=== PATIENT | male | born 1955 | race American Indian/Alaskan Native ===

== ENCOUNTER 2023-12-10 10:26 | Emergency (ER) | payer OTHER, SELFPAY ==
[2023-12-10 10:40] VITALS: BP 140/81; PULSE 102; RESP 18; TEMP 36.8; O2SAT 96; BMI 20.6
--- NOTE | 2023-12-10 10:47 | ECG_ITS ---
Test Reason : L ARM PAIN Blood Pressure : / mmHG Vent. Rate : 102 BPM Atrial Rate : 102 BPM P-R Int : 124 ms QRS Dur : 072 ms QT Int : 312 ms P-R-T Axes : 086 -44 064 degrees QTc Int : 406 ms Sinus tachycardia Left axis deviation Junctional ST depression, probably normal Abnormal ECG No previous ECGs available Referred By: Generic ED Physician Electronically Signed By:AN REAVES
[2023-12-10 11:06] LABS: MANUAL DIFF FLAG NO
[2023-12-10 11:09] LABS: Basophils Percent Auto 0.3 % (0-2); Eosinophils Percent Auto 0.1 % (0-4); Hematocrit 45.6 % (42.0-52.0); Hemoglobin 15.6 g/dl (14.0-18.0); Imm Gran Abs Auto 0.05 X10*3/uL (0.00-0.03); Imm Gran Pct Auto 0.7 % (0.0-0.4); Lymphocytes Absolute Auto 1.7 X10*3/uL (1.2-4.9); Lymphocytes Percent Auto 25.4 % (20-40); Mean Corpuscular HGB Conc 34.2 g/dl (31.0-36.0); Mean Corpuscular Volume 90.7 fL (80.0-98.0); Mean Platelet Volume 8.8 fL (9.4-12.4); Monocytes Absolute Auto 0.9 X10*3/uL (0.1-1.2); Monocytes Percent Auto 12.4 % (2-11); Neutrophils Absolute Auto 4.2 x10*3/uL (2.0-8.3); Neutrophils Percent Auto 61.1 % (45-73); Platelet Count 343 X10*3/uL (160-400); Red Blood Count 5.03 X10*6/uL (4.60-5.80); Red Cell Distribution Width 12.1 % (11.0-16.0); White Blood Count 6.9 X10*3/uL (4.8-10.8)
[2023-12-10 11:23] LABS: Anion Gap 12 (12-20); Blood Urea Nitrogen 13 mg/dL (9-16); Calcium 9.9 mg/dL (8.4-10.2); Carbon Dioxide 29 mmol/L (22-29); Chloride 101 mmol/L (96-108); Creatinine Clr Calc Pharmacy 51.3; Estimated Glomerular Filt Rate > 60; Glucose Random 104 mg/dL (60-115); Potassium 4.5 mmol/L (3.3-5.1); Sodium 137 mmol/L (135-145)
[2023-12-10 11:32] LABS: Troponin-I High Sensitivity < 2.7 ng/L (<3.5-35.0)
[2023-12-10 12:47] LABS: Influenza A PCR POSITIVE (Negative); Influenza B PCR NEGATIVE (Negative); Resp Syncy Virus RNA Qual PCR NEGATIVE (Negative); SARS COV2 PCR INHOUSE NEGATIVE (Negative)
--- NOTE | 2023-12-10 13:47 | ED_ITS ---
HPI - Extremity Problem General Chief complaint: Extremity Injury, Upper Stated complaint: L arm pain no inj Time Seen by Provider: 12/10/23 13:48 Related Data Allergies Allergy/AdvReac Type Severity Reaction Status Date / Time No Known Allergies Allergy Verified 12/10/23 10:46 [facility] Social History Social History Advance Directives: No Advance Directives Information Provided: Yes Physical Exam 2 Vital Signs: Vital Signs: Last Vital Signs Temp 98.2 F 12/10/23 10:40 Pulse 102 H 12/10/23 10:40 Resp 18 12/10/23 10:40 BP 140/81 H 12/10/23 10:40 Pulse Ox 96 12/10/23 10:40 O2 Del Method Room Air 12/10/23 10:40 BMI result Body Mass Index 20.6 Medical Decision Making Lab Data 12/10/23 11:00 12/10/23 11:00 Labs: Lab Results 12/10/23 12/10/23 Range/Units 11:00 11:57 WBC 6.9 (4.8-10.8) X10*3/uL RBC 5.03 (4.60-5.80) X10*6/uL Hgb 15.6 (14.0-18.0) g/dl Hct 45.6 (42.0-52.0) % MCV 90.7 (80.0-98.0) fL MCH 31.0 (27.0-33.0) pg MCHC 34.2 (31.0-36.0) g/dl RDW 12.1 (11.0-16.0) % Plt Count 343 (160-400) X10*3/uL MPV 8.8 L (9.4-12.4) fL Immature Gran % (Auto) 0.7 H (0.0-0.4) % Neut % (Auto) 61.1 (45-73) % Lymph % (Auto) 25.4 (20-40) % Benzie % (Auto) 12.4 H (2-11) % Eos % (Auto) 0.1 (0-4) % Baso % (Auto) 0.3 (0-2) % Lymph # (Auto) 1.7 (1.2-4.9) X10*3/uL [place] # (Auto) 0.9 (0.1-1.2) X10*3/uL Eos # (Auto) 0.0 (0.0-0.4) X10*3/uL Baso # (Auto) 0.0 (0.0-0.2) X10*3/uL Abs Immat Gran (auto) 0.05 H (0.00-0.03) X10*3/uL Absolute Neuts (auto) 4.2 (2.0-8.3) x10*3/uL Absolute Nucleated RBC 0.000 (0.0-0.012) X10*3/uL Nucleated RBC % (auto) 0.0 (0.0-0.2) /100WBC Sodium 137 (135-145) mmol/L Potassium 4.5 (3.3-5.1) mmol/L Chloride 101 (96-108) mmol/L Carbon Dioxide 29 (22-29) mmol/L Anion Gap 12 (12-20) BUN 13 (9-16) mg/dL Creatinine 1.04 (0.5-1.4) mg/dL Estim Creat Clear Calc 51.3 Estimated GFR > 60 Random Glucose 104 (60-115) mg/dL Calcium 9.9 (8.4-10.2) mg/dL Troponin I High Sens < 2.7 (<3.5-35.0) ng/L Influenza Type A (PCR) TNP POSITIVE A Influenza Type B (PCR) TNP NEGATIVE RSV RNA Qual (PCR) TNP NEGATIVE SARS-CoV-2 RNA (RT-PCR) TNP NEGATIVE Discharge Plan Discharge Print Language: Djiboutian
== END 2023-12-10 13:50 | disposition left against medical advice (07) ==
PROVIDERS: Emergency Medicine; Physician Assistant; Emergency Provider Emergency Medicine
DX: M79.602 Pain in left arm (principal); Z11.52 Encounter for screening for COVID-19
CPT/HCPCS: 0241U; 80048; 84484; 85025; 93005; 99283

== ENCOUNTER → 2023-12-10 10:47 | Outpatient (BNV) | payer OTHER, SELFPAY | PROVIDERS: Emergency Provider Emergency Medicine; Visit Provider Internal Medicine | DX: R94.31 Abnormal electrocardiogram [ECG] [EKG] (principal) | CPT/HCPCS: 93010 ==

== ENCOUNTER 2024-08-17 05:11 | Emergency (ER) | payer OTHER, SELFPAY ==
[2024-08-17 05:17] VITALS: BP 140/80; PULSE 82; O2SAT 98
[2024-08-17 05:20] VITALS: BP 159/98; PULSE 75; RESP 16; TEMP 36.5; O2SAT 98; BMI 24.1
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
[2024-08-17 09:36] VITALS: BP 127/67; PULSE 84; RESP 13; TEMP 37; O2SAT 98
--- NOTE | 2024-08-17 09:40 | MHC.EDTECH ---
this pct took patients vitals , as i was asking him how he is feeling he stated that he is ready to be with god and he wants to so he can be at peace .He also stated he has no one here and only came from [place] to be with his mom before she , he states he does have one child that is in [place] but will rather not bother him and ask for help because he already accomplished raising him and does not want to interrupt his life .
[2024-08-17 10:16] LABS: COVID-19 Test Negative (Negative); IDNOW Serial# 58CA691E
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
[2024-08-17 12:19] VITALS: BP 145/77; PULSE 99; RESP 14; TEMP 36.6; O2SAT 98
[2024-08-17 15:17] VITALS: BP 166/78; PULSE 88; RESP 18; TEMP 36.9; O2SAT 97
[2024-08-17 16:32] LABS: MANUAL DIFF FLAG NO
[2024-08-17 16:33] LABS: Basophils Percent Auto 0.3 % (0-2); Eosinophils Percent Auto 0.3 % (0-4); Hematocrit 38.9 % (42.0-52.0); Hemoglobin 13.8 g/dl (14.0-18.0); Imm Gran Abs Auto 0.02 X10*3/uL (0.00-0.03); Imm Gran Pct Auto 0.3 % (0.0-0.4); Lymphocytes Absolute Auto 1.6 X10*3/uL (1.2-4.9); Lymphocytes Percent Auto 28.4 % (20-40); Mean Corpuscular HGB Conc 35.5 g/dl (31.0-36.0); Mean Corpuscular Hemoglobin 32.3 pg (27.0-33.0); Mean Corpuscular Volume 91.1 fL (80.0-98.0); Monocytes Absolute Auto 0.5 X10*3/uL (0.1-1.2); Monocytes Percent Auto 8.5 % (2-11); Neutrophils Absolute Auto 3.6 x10*3/uL (2.0-8.3); Neutrophils Percent Auto 62.2 % (45-73); Platelet Count 204 X10*3/uL (160-400); Red Blood Count 4.27 X10*6/uL (4.60-5.80); Red Cell Distribution Width 12.5 % (11.0-16.0); White Blood Count 5.8 X10*3/uL (4.8-10.8)
[2024-08-17 16:57] LABS: Albumin Level 4.2 g/dL (3.5-5.0); Anion Gap 14 (12-20); Aspartate Amino Transferase 66 U/L (5-37); Bilirubin Total 0.4 mg/dL (0.0-1.0); Blood Urea Nitrogen 20 mg/dL (9-16); Calcium 9.3 mg/dL (8.4-10.2); Carbon Dioxide 27 mmol/L (22-29); Chloride 103 mmol/L (96-108); Creatinine Clr Calc Pharmacy 54.7; Estimated Glomerular Filt Rate > 60; Ethanol < 10 mg/dL; Glucose Random 120 mg/dL (60-115); Magnesium 2.1 mg/dL (1.6-2.6); Potassium 4.6 mmol/L (3.3-5.1); Sodium 139 mmol/L (135-145); Total Protein 7.7 g/dL (6.5-8.0)
[2024-08-17 17:07] LABS: Amphetamine Screen Urine Not Detected (Not Detect); Barbiturates, Urine Not Detected (Not Detect); Benzodiazepines Screen Urine Not Detected (Not Detect); Buprenorphine Scr Not Detected (Not Detect); Cannabinoid Screen Urine POSITIVE (Not Detect); Cocaine Screen Urine POSITIVE (Not Detect); Fentanyl, urine Not Detected (Not Detect); Methadone Screen, Urine Not Detected (Not Detect); Opiate Screen Urine Not Detected (Not Detect); Oxycodone Screen Urine Not Detected (Not Detect); Phencyclidine Screen Urine Not Detected (Not Detect)
[2024-08-17 17:53] LABS: Alanine Aminotransferase 66 U/L (0-40); Alkaline Phosphatase 87 U/L (39-117)
[2024-08-17] MEDS: Melatonin 3 MG TABLET 6 MG PO (22:03)
[2024-08-18 07:33] VITALS: BP 172/93; PULSE 73; RESP 17; TEMP 36.7; O2SAT 98
--- NOTE | 2024-08-18 08:20 | MHC.EDTECH ---
pt ate 75% of his breakfast and 120cc of juice
[2024-08-18 11:46] VITALS: BP 168/88; PULSE 78; RESP 18; TEMP 36.8; O2SAT 98
--- NOTE | 2024-08-18 11:50 | MHC.CM.ED ---
Received notification from Maeve HARTMAN that patient is no longer interested in prison placement at SNF. Requesting to be d/c'd. Fartun SANCHEZ aware and d/c'd. Patient had transportation.
== END 2024-08-18 11:47 | disposition home or self-care (01) ==
PROVIDERS: Physician Assistant; Emergency Provider Emergency Medicine Emergency Medical Services
DX: F10.129 Alcohol abuse with intoxication, unspecified (principal); Y90.9 Presence of alcohol in blood, level not specified; Z59.00 Homelessness unspecified; Z51.81 Encounter for therapeutic drug level monitoring; Z79.899 Other long term (current) drug therapy; Z11.52 Encounter for screening for COVID-19
CPT/HCPCS: 36415; 80053; 80307; 83735; 85025; 87635; 99284; 99285

== ENCOUNTER → 2025-02-12 04:36 | Outpatient (BNV) | payer OTHER, SELFPAY | PROVIDERS: Emergency Provider Emergency Medicine; Visit Provider Radiology Diagnostic Radiology | DX: M54.2 Cervicalgia (principal); S09.90XA Unspecified injury of head, initial encounter; J32.0 Chronic maxillary sinusitis; W22.8XXA Striking against or struck by other objects, initial encounter | CPT/HCPCS: 70450; 70486; 72125 ==

== ENCOUNTER 2025-02-12 05:06 | Emergency (ER) | payer OTHER, SELFPAY ==
--- NOTE | ~2025-02-12 | CT_ITS ---
CLINICAL HISTORY: neck pain CT cervical spine without contrast Comparison: None provided Findings: Vertebral alignment is within normal limits. There is degenerative disc disease at the C4-5 through C6-7 levels associated with disc space narrowing and endplate productive changes. No acute fractures or dislocations. No acute findings on limited view of the intracranial contents. No cervical fluid collections or masses. A calcified granuloma seen at the right lung apex. IMPRESSION: No acute findings. This document has been electronically signed by: Yuri Love MD on 02/12/2025 07:21:38
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
[2025-02-12 05:09] VITALS: BP 113/66; BP 140/80; PULSE 105; PULSE 94; RESP 16; TEMP 36.3; O2SAT 94; O2SAT 95; BMI 22.4
[2025-02-12 05:23] VITALS: BP 113/66; PULSE 94; RESP 16; TEMP 36.3; O2SAT 94
--- NOTE | 2025-02-12 05:40 | PC.NURSE ---
pt self removed C collar, aware
[2025-02-12 06:24] VITALS: BP 117/65; PULSE 80; RESP 16; TEMP 36.6; O2SAT 96
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
[2025-02-12] MEDS: Acetaminophen 325 MG TABLET 975 MG PO (07:30)
[2025-02-12 07:37] VITALS: BP 134/84; PULSE 85; RESP 20; TEMP 36.9; O2SAT 96
[2025-02-12 07:41] VITALS: BP 134/84; PULSE 85; RESP 20; TEMP 36.9; O2SAT 96
== END 2025-02-12 07:59 | disposition home or self-care (01) ==
PROVIDERS: Emergency Provider Emergency Medicine
DX: S09.90XA Unspecified injury of head, initial encounter (principal); R51.9 Headache, unspecified; M54.2 Cervicalgia; X58.XXXA Exposure to other specified factors, initial encounter; Y00.XXXA Assault by blunt object, initial encounter; Y93.9 Activity, unspecified; Y92.9 Unspecified place or not applicable; Y99.8 Other external cause status
CPT/HCPCS: 70450; 70486; 72125; 99284

== ENCOUNTER 2025-06-17 21:00 | Inpatient (IN) | payer MEDICARE, SELFPAY ==
--- NOTE | ~2025-06-17 | XR_ITS ---
CLINICAL HISTORY: pain 2 views left humerus Comparison: None provided Findings: There is no fracture. Joint alignment of the left shoulder and elbow appear normal. No lytic or blastic lesion is seen. Impression: Unremarkable left humerus radiographs. This document has been electronically signed by: Nas Barillas MD on 06/18/2025 00:58:34
--- NOTE | 2025-06-17 21:24 | ECG_ITS ---
Test Reason : QTC CHECK Blood Pressure : */* mmHG Vent. Rate : 73 BPM Atrial Rate : 73 BPM P-R Int : 140 ms QRS Dur : 92 ms QT Int : 390 ms P-R-T Axes : 75 -40 38 degrees QTcB Int : 429 ms Normal sinus rhythm Left axis deviation Abnormal ECG When compared with ECG of 10-Dec-2023 10:50, No significant change was found Referred By: Generic ED Physician Electronically Signed By: MARISOL LOVE MD
[2025-06-17 21:48] VITALS: BP 126/90; BP 130/82; PULSE 64; PULSE 76; RESP 16; TEMP 36.6; O2SAT 98; BMI 21.9
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
[2025-06-17 22:19] VITALS: BP 126/90; PULSE 76; RESP 16; TEMP 36.6; O2SAT 97
[2025-06-17 22:31] LABS: MANUAL DIFF FLAG NO
[2025-06-17 22:32] LABS: Hematocrit 38.6 % (42.0-52.0); Hemoglobin 13.2 g/dl (14.0-18.0); Imm Gran Abs Auto 0.01 X10*3/uL (0.00-0.03); Imm Gran Pct Auto 0.2 % (0.0-0.4); Lymphocytes Absolute Auto 1.9 X10*3/uL (1.2-4.9); Mean Corpuscular HGB Conc 34.2 g/dl (31.0-36.0); Mean Corpuscular Hemoglobin 31.0 pg (27.0-33.0); Mean Corpuscular Volume 90.6 fL (80.0-98.0); NRBC Abs Auto 0.000 X10*3/uL (0.0-0.012); NRBC Pct Auto 0.0 /100WBC (0.0-0.2); Platelet Count 234 X10*3/uL (160-400); Red Blood Count 4.26 X10*6/uL (4.60-5.80); White Blood Count 4.9 X10*3/uL (4.8-10.8)
[2025-06-17 22:35] LABS: Appearance Urine Clear; Glucose Urine UA Negative (Negative); PH 5.5 (5.0-9.0); Specific Gravity - Urine <= 1.005 (1.005-1.025)
[2025-06-17 22:45] LABS: Anion Gap 14 (12-20); Blood Urea Nitrogen 21 mg/dL (9-16); Calcium 8.8 mg/dL (8.4-10.2); Carbon Dioxide 23 mmol/L (22-29); Chloride 107 mmol/L (96-108); Creatinine Clr Calc Pharmacy 54.7; Estimated Glomerular Filt Rate > 60; Potassium 4.1 mmol/L (3.3-5.1); Sodium 140 mmol/L (135-145)
[2025-06-17 22:46] LABS: Cannabinoid Screen Urine Not Detected (Not Detect)
[2025-06-17 22:52] LABS: Salicylate < 5.0 mg/dL (15-30)
--- NOTE | 2025-06-18 00:25 | PC.NURSE ---
pt cooperative, pt remains a 1:1
--- NOTE | 2025-06-18 00:57 | PC.NURSE ---
medicated per mar.
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
[2025-06-18 04:03] VITALS: BP 128/63; PULSE 90; RESP 18; TEMP 36.7; O2SAT 98
[2025-06-18 05:51] VITALS: RESP 18
--- NOTE | 2025-06-18 07:36 | PC.NURSE ---
Assumed care of patient at 0645, patient appears to be in no apparent distress this am, resting in bed, respirations even and unlabored. Continue plan of care for IPLOC
[2025-06-18 12:58] VITALS: BP 159/78; PULSE 83; RESP 16; TEMP 36.7; O2SAT 98
[2025-06-18 12:59] VITALS: BMI 21.3
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
[2025-06-18] MEDS: Flu Vacc TS2025-26(6mo up)/PF 0.5 ML SYRINGE IM (18:05)
[2025-06-18 20:00] VITALS: BP 172/80; PULSE 75; RESP 16; TEMP 36.7; O2SAT 99
[2025-06-19 07:39] VITALS: BP 141/64; PULSE 70; RESP 16; TEMP 36.8; O2SAT 98
[2025-06-19 07:48] LABS: Total Hemoglobin (HGBA1C) 3770.9232 umol/L
[2025-06-19 08:02] LABS: Alanine Aminotransferase 129 U/L (0-40); Albumin Level 4.3 g/dL (3.5-5.0); Alkaline Phosphatase 84 U/L (39-117); Aspartate Amino Transferase 92 U/L (5-37); Blood Urea Nitrogen 20 mg/dL (9-16); Calcium 9.0 mg/dL (8.4-10.2); Cholesterol 248 mg/dL (<200); Creatinine Clr Calc Pharmacy 50.6; Estimated Glomerular Filt Rate > 60; HDL Cholesterol 79 mg/dL (>40); Magnesium 2.1 mg/dL (1.6-2.6); Total Protein 7.6 g/dL (6.5-8.0); Triglycerides 124 mg/dL (<150)
[2025-06-19 08:10] LABS: Anion Gap 12 (12-20); Carbon Dioxide 27 mmol/L (22-29); Chloride 105 mmol/L (96-108); Potassium 4.1 mmol/L (3.3-5.1); Sodium 140 mmol/L (135-145)
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
[2025-06-19 08:24] LABS: Folate 9.2 ng/mL (> or = 4.0); Vitamin B12 382 pg/mL (200-900)
[2025-06-19 10:21] VITALS: BP 147/86; PULSE 85; O2SAT 100
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
[2025-06-19] MEDS: Magnesium Hydrox/Alum Hydrox 30 ML ORAL.SUSP PO (19:07)
[2025-06-19 23:25] VITALS: BP 127/85; PULSE 97; RESP 16; TEMP 36.4; O2SAT 97
[2025-06-20 00:31] VITALS: PULSE 92; RESP 16; O2SAT 99
[2025-06-20] MEDS: Albuterol Sulfate (0.083%) 2.5 MG/3 ML VIAL.NEB INHALE (00:31)
[2025-06-20 08:00] VITALS: BP 150/86; PULSE 75; RESP 16; TEMP 36.4; O2SAT 98
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
[2025-06-20 19:30] VITALS: BP 140/72; PULSE 82; RESP 16; TEMP 36.6; O2SAT 99
[2025-06-20] MEDS: Magnesium Hydrox/Alum Hydrox 30 ML ORAL.SUSP PO (20:05)
[2025-06-21 08:00] VITALS: BP 153/73; PULSE 83; RESP 18; TEMP 36.2; O2SAT 100
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
[2025-06-21 19:57] VITALS: BP 148/74; PULSE 89; RESP 18; TEMP 36.6; O2SAT 98
[2025-06-22 08:00] VITALS: BP 125/75; PULSE 77; RESP 18; TEMP 36.8; O2SAT 99
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
[2025-06-22 20:00] VITALS: BP 126/71; PULSE 78; RESP 16; TEMP 36.6; O2SAT 100
[2025-06-23 07:15] VITALS: BP 134/79; PULSE 85; RESP 16; TEMP 36.3; O2SAT 98
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
[2025-06-23 20:03] VITALS: BP 142/73; PULSE 82; RESP 16; TEMP 36.9; O2SAT 99
[2025-06-24 08:00] VITALS: BP 149/81; PULSE 74; RESP 20; TEMP 36.6; O2SAT 100
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
[2025-06-24] MEDS: Nicotine 14 MG PATCH.TD24 TRANSDERMA (12:30)
[2025-06-24 20:00] VITALS: BP 169/76; PULSE 99; RESP 16; TEMP 36.9; O2SAT 98
[2025-06-25 07:00] VITALS: BMI 22.6
[2025-06-25 08:00] VITALS: BP 118/89; PULSE 84; RESP 18; TEMP 36.4; O2SAT 98
[2025-06-25] MEDS: Nicotine 14 MG PATCH.TD24 TRANSDERMA (09:07)
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
[2025-06-25 19:04] VITALS: BMI 22.6
[2025-06-25 20:50] VITALS: BP 169/83; PULSE 90; RESP 18; TEMP 37.3; O2SAT 97
[2025-06-26 07:51] VITALS: BP 144/70; PULSE 83; RESP 14; TEMP 36.7; O2SAT 98
[2025-06-26] MEDS: Nicotine 14 MG PATCH.TD24 TRANSDERMA (08:02)
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
[2025-06-26 20:00] VITALS: BP 185/87; PULSE 89; RESP 20; TEMP 37; O2SAT 94
[2025-06-26 21:45] VITALS: BP 155/86; PULSE 62; O2SAT 95
[2025-06-26 22:19] VITALS: PULSE 100; RESP 18; O2SAT 98
[2025-06-26] MEDS: Albuterol Sulfate (0.083%) 2.5 MG/3 ML VIAL.NEB INHALE (22:19)
[2025-06-27 07:20] VITALS: BP 140/91; PULSE 91; RESP 16; TEMP 36.7; O2SAT 99
[2025-06-27] MEDS: Nicotine 14 MG PATCH.TD24 TRANSDERMA (08:42)
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
[2025-06-27 20:00] VITALS: BP 151/77; PULSE 83; RESP 17; TEMP 36.7; O2SAT 99
[2025-06-28 08:13] VITALS: BP 120/62; PULSE 90; RESP 18; TEMP 37.1; O2SAT 98
[2025-06-28] MEDS: Nicotine 14 MG PATCH.TD24 TRANSDERMA (08:48)
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
[2025-06-29 07:57] VITALS: BP 134/85; PULSE 84; RESP 18; TEMP 36.5; O2SAT 99
[2025-06-29] MEDS: Nicotine 14 MG PATCH.TD24 TRANSDERMA (08:21)
[2025-06-29] MEDS: Lidocaine 4 % Patch ADH..PATCH 1 PATCH TRANSDERMA (11:06)
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
[2025-06-29 20:00] VITALS: BP 165/95; PULSE 77; RESP 16; TEMP 36.8; O2SAT 100
[2025-06-30 08:00] VITALS: BP 157/83; PULSE 95; RESP 16; TEMP 36.8; O2SAT 98
[2025-06-30] MEDS: Nicotine 14 MG PATCH.TD24 TRANSDERMA (08:53)
[2025-06-30] MEDS: Lidocaine 4 % Patch ADH..PATCH 1 PATCH TRANSDERMA (08:56)
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
== END 2025-06-30 11:15 | disposition home or self-care (01) | DRG 885 ==
LOC: HO.ED 06-18 02:34 → HO.PADLT16 06-18 11:16
PROVIDERS: Student in an Organized Health Care Education/Training Program; Admitting Provider Psychiatry & Neurology Psychiatry; Emergency Provider Emergency Medicine; Visit Provider Psychiatry & Neurology Psychiatry
DX: F33.2 Major depressive disorder, recurrent severe without psychotic features (principal); R45.851 Suicidal ideations; Z59.02 Unsheltered homelessness; Z23 Encounter for immunization; Y90.7 Blood alcohol level of 200-239 mg/100 ml; F19.10 Other psychoactive substance abuse, uncomplicated; F17.210 Nicotine dependence, cigarettes, uncomplicated; Z71.6 Tobacco abuse counseling; F14.10 Cocaine abuse, uncomplicated; F10.90 Alcohol use, unspecified, uncomplicated; Z79.899 Other long term (current) drug therapy
CPT/HCPCS: 36415; 73060; 80048; 80053; 80061; 80179; 80307; 81003; 82248; 82607; 82746; 83036; 83735; 85025; 90656; 93005; 94640; 99285; S9485

== ENCOUNTER → 2025-06-17 21:24 | Outpatient (BNV) | payer OTHER, SELFPAY | PROVIDERS: Admitting Provider Psychiatry & Neurology Psychiatry; Emergency Provider Emergency Medicine; Visit Provider Internal Medicine Cardiovascular Disease | DX: R94.31 Abnormal electrocardiogram [ECG] [EKG] (principal); Z13.6 Encounter for screening for cardiovascular disorders | CPT/HCPCS: 93010 ==

== ENCOUNTER → 2025-06-18 00:34 | Outpatient (BNV) | payer OTHER, SELFPAY | PROVIDERS: Emergency Provider Student in an Organized Health Care Education/Training Program; Visit Provider Radiology Diagnostic Radiology | DX: M79.622 Pain in left upper arm (principal) | CPT/HCPCS: 73060 ==

== ENCOUNTER → 2025-06-18 11:11 | Outpatient (BNV) | payer MEDICARE, SELFPAY | PROVIDERS: Admitting Provider Psychiatry & Neurology Psychiatry; Emergency Provider Emergency Medicine; Visit Provider Nurse Practitioner Family | DX: F43.9 Reaction to severe stress, unspecified (principal) | CPT/HCPCS: 99221 ==

== ENCOUNTER → 2025-06-18 11:11 | Outpatient (BNV) | payer MEDICARE, SELFPAY | PROVIDERS: Admitting Provider Psychiatry & Neurology Psychiatry; Emergency Provider Emergency Medicine; Visit Provider Psychiatry & Neurology Psychiatry | DX: F33.2 Major depressive disorder, recurrent severe without psychotic features (principal); F14.10 Cocaine abuse, uncomplicated; F10.90 Alcohol use, unspecified, uncomplicated; F43.11 Post-traumatic stress disorder, acute | CPT/HCPCS: 90792; 99232 ==

== ENCOUNTER 2025-07-16 23:19 | Emergency (ER) | payer MEDICARE, SELFPAY ==
[2025-07-16 23:27] VITALS: BP 157/81; PULSE 103; RESP 20; TEMP 36.3; O2SAT 95; BMI 22.5
[2025-07-17 00:08] LABS: Baso%MD 0.2 %; Eos%MD 0.2 %; Hematocrit 42.2 % (42.0-52.0); Hemoglobin 14.2 g/dl (14.0-18.0); IG%MD 0.3 %; Lymph%MD 22.1 %; Mean Corpuscular HGB Conc 33.6 g/dl (31.0-36.0); Mean Corpuscular Hemoglobin 30.2 pg (27.0-33.0); Mean Corpuscular Volume 89.8 fL (80.0-98.0); Mono%MD 7.7 %; NRBC Abs Auto 0.000 X10*3/uL (0.0-0.012); NRBC Pct Auto 0.0 /100WBC (0.0-0.2); Neut%MD 69.5 %; Platelet Count 313 X10*3/uL (160-400); Red Blood Count 4.70 X10*6/uL (4.60-5.80); White Blood Count 8.6 X10*3/uL (4.8-10.8)
[2025-07-17 00:09] LABS: Appearance Urine Clear; Glucose Urine UA Negative (Negative); PH 5.0 (5.0-9.0); Specific Gravity - Urine 1.010 (1.005-1.025)
[2025-07-17 00:19] LABS: Cannabinoid Screen Urine Not Detected (Not Detect)
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
[2025-07-17 00:29] LABS: Alanine Aminotransferase 33 U/L (0-40); Albumin Level 4.9 g/dL (3.5-5.0); Alkaline Phosphatase 86 U/L (39-117); Anion Gap 14 (12-20); Aspartate Amino Transferase 31 U/L (5-37); Blood Urea Nitrogen 24 mg/dL (9-16); Calcium 9.4 mg/dL (8.4-10.2); Carbon Dioxide 26 mmol/L (22-29); Chloride 104 mmol/L (96-108); Creatinine Clr Calc Pharmacy 51.7; Estimated Glomerular Filt Rate > 60; Potassium 3.8 mmol/L (3.3-5.1); Sodium 140 mmol/L (135-145); Total Protein 8.5 g/dL (6.5-8.0)
[2025-07-17 00:34] LABS: Salicylate < 5.0 mg/dL (15-30)
[2025-07-17 00:37] LABS: Band Neutrophils Percent 3 % (3-5); Lymphocytes Absolute Manual 2.6 X10*3/uL (1.2-4.9); Lymphocytes Percent Manual 30 % (20-40); Monocytes Absolute Manual 1.1 X10*3/uL (0.1-1.2); Monocytes Percent Manual 13 % (2-11); Neutrophils Absolute Manual 4.9 X10*3/uL (2.0-8.3); Neutrophils Percent Manual 54 % (45-73)
[2025-07-17 00:38] LABS: RBC Morphology NORMAL
[2025-07-17 06:59] VITALS: BP 152/72; PULSE 83; RESP 12; TEMP 36.6; O2SAT 98
--- NOTE | 2025-07-17 06:59 | PC.NURSE ---
Assumed care of patient at 0645, patient appears to be in no apparent distress this am, calm and cooperative, offering no complaints to this RN. Continue plan of care for CARE team eval
[2025-07-17 10:05] VITALS: BP 152/72; PULSE 83; RESP 12; TEMP 36.6
--- NOTE | 2025-07-17 14:19 | MHC.CARE ---
Pt has been [facility] to [facility] for veterans services specialist, 3 day follow up, 7 day alert, housing referrals, and Recovery coaching/peer support.
== END 2025-07-17 10:37 | disposition home or self-care (01) ==
PROVIDERS: Emergency Provider Emergency Medicine
DX: F14.10 Cocaine abuse, uncomplicated (principal); F10.129 Alcohol abuse with intoxication, unspecified; R45.851 Suicidal ideations; Y90.6 Blood alcohol level of 120-199 mg/100 ml
CPT/HCPCS: 36415; 80053; 80179; 80307; 81001; 85007; 85027; 99285; S9485

== ENCOUNTER 2025-07-18 04:16 | Inpatient (IN) | payer MEDICARE, SELFPAY ==
[2025-07-18 04:23] VITALS: BP 104/58; BP 120/70; PULSE 81; PULSE 90; RESP 18; TEMP 36.4; O2SAT 93; O2SAT 94; BMI 24.3
--- NOTE | 2025-07-18 04:26 | ED_ITS ---
HPI - General Adult General Stated complaint: ETOH and cocaine says they need panic attack meds Time Seen by Provider: 07/18/25 04:20 Source: patient and EMS Mode of arrival: EMS Limitations: no limitations History of Present Illness ED Provider: Dr. Clari Tomlin HPI narrative: Patient comes to the emergency room via ambulance. Patient reporting alcohol intoxication and stating that he wants to . Of note, patient came to the hospital yesterday for the same reason, was seen by the care team, discharged, referred to the [facility] for older adult social work specialist with a 3 day follow-up. Patient d enies any new issues. Patient states that he was not able to turkey picker his medications today either. Related Data Previous Rx's ?Medication ?Instructions ?Recorded acetaminophen 325 mg tablet 650 mg (2 x 325 mg) PO Q6H PRN 06/30/25 Headache/Pain, Scale 1-10 #0 tabs aluminum-magnesium hydroxide 200 30 ml PO Q6H PRN Hear tburn/Nausea 06/30/25 mg-200 mg/5 mL oral suspension #0 mL (MAG-AL) buspirone 5 mg tablet 5 mg PO TID 30 days #90 tabs 06/30/25 gabapentin 100 mg capsule 100 mg PO TID 30 days #90 ca ps 06/30/25 hydroxyzine HCl 25 mg tablet 25 mg PO TID PRN mild anx iety 30 06/30/25 days #90 tabs lidocaine 4 % topical patch 1 patch transdermal DAILY 30 days 06/30/25 (Lidocaine Pain Relief) #30 ea naltrexone 50 mg tablet 25 mg (1/2 x 50 mg) PO BEDTI ME 30 06/30/25 days #15 tabs nicotine 14 mg/24 hr daily 14 mg transdermal DAILY 28 days 06/30/25 transdermal patch #28 ea omeprazole 20 mg capsule,delayed 20 mg PO DAILY@0630 3 0 days #30 06/30/25 release caps quetiapine 100 mg tablet See Rx Instructions .Route 1 08/30/24 .COMPLEX 30 days #60 tabs trazodone 50 mg tablet See Rx Instructions .Route 1 08/30/24 .COMPLEX PRN Insomnia 30 days #60 tabs Allergies Allergy/AdvReac Type Severity Reaction Status Date / Time No Known Allergies Allergy Verified 07/18/25 04:28 Review of Systems Review of Systems: Constitutional : No Weight loss, No Fever, No Chills, No Night Sweats, No Fatigue, No Malaise ENT/Mouth : No Hearing loss, No Ear Pain, No Nasal Congestion, No Sinus Pain, No Hoarseness, No sore throat, No Rhinorrhea, No Swallowing Difficulty Eyes: No Eye Pain, No Swelling, No Redness, No Foreign Body, No Discharge, No Vision Changes Cardiovascular : No Chest Pain, No SOB, No Dyspnea on Exertion, No Orthopnea, No Edema, No Palpitations Respiratory : No Cough, No Sputum, No Wheezing, No Smoke Exposure, No Dyspnea Gastrointestinal : No Nausea, No Vomiting, No Diarrhea, No Constipation, No abdominal Pain, No Hematochezia, No Melena Genitourinary : no irregular bleeding, No Dysuria, No Urinary Frequency, No Hematuria, No Urinary Incontinence, No Urgency, No Flank Pain, No Urinary Flow Changes, No Hesitancy Musculoskeletal : No joint pain, No Myalgias, No Joint Swelling Skin : No Skin Lesions, No rash Neuro : No Weakness, No Numbness, No Paresthesias, No Loss of Consciousness, No Dizziness, No Headache Psych : Complaining of anxiety, depression, SI saying that he wants to jump in front of a car, same as yesterday. Admits to alcohol abuse Heme/Lymph: No Bruising, No Bleeding,No Lymphadenopathy Endocrine : No Polyuria, No Polydipsia, No Temperature Intolerance PMFSH Past Medical History Medical History Major depressive disorder, recurrent, severe 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 Social History Social History Household Members: None Housing: Homeless Housing Other:: street since January Do you presently have visiting nurse or other home services: No Alcohol intake: current Alcohol intake frequency: 3 or more drinks per day Alcohol type: beer Patient Tobacco Use Status: Current everyday Tobacco user Tobacco use type: Cigarette Cigarettes Per Day: 6 Years Smoked: 60 e-Cigarette/Vaping Use: Never Used Second Hand Smoke Exposure: No Substance Use Type: Crack/Cocaine service: No Sexual orientation: Straight/Heterosexual Physical Exam ED Exam Exam: Appearance: Alert. Oriented X3. No acute distress. Patient's seems to be a bit intoxicated but still able to speak coherently Eyes: Pupils equal, round and reactive to light. ENT: Pharynx normal. Neck: Normal inspection. Neck supple. No lymph nodes noted. No crepitus CVS: Normal heart rate and rhythm. Pulses normal. Normal S1 and S2 Respiratory: No respiratory distress. Breath sounds normal. No Wheezing. No rales Abdomen: Soft and nontender. No rigidity. No distention. Skin: Skin warm and dry. Normal skin color. Normal skin turgor. Extremities: No lower extremity edema. No Lacerations. No Rash Neuro: Oriented X 3. No motor deficit. No sensory deficit. Moving all extremities. No slurred speech. CN 2 through 12 grossly intact Psych: calm, cooperative, Course Course Course Narrative: Patient was discharged earlier today, was not by the care team. Patient returns with the same complaint. Complaining of SI All of patient's labs pending Care team consult pending Physician observation started at 04:30 Medical Decision Making Differential Diagnosis Differential Diagnoses: The differential diagnosis associated with the presentation includes (Alcohol intoxication, alcohol abuse and dependence, cocaine abuse, anxiety, depression) Admission/Observation Consideration of admission/observation: Escalation of care including admissio n/observation considered (Patient is under physician observation waiting to be seen by the care team) Critical Care Time Critical Care Time Critical Care Time: Yes Total Critical Care Time: 35 Attestation: I have personally provided critical care time. Time includes review of lab data, radiology results, discussion with consultants, and monitoring for potential decompensation. Intervention performed as documented. Discharge Plan Discharge Clinical Impression: Cocaine use disorder, Alcohol use Prescriptions: No Action nicotine 14 mg/24 hr Patch 24 Hour 14 mg transdermal DAILY 28 Days Qty: 28 0RF acetaminophen 325 mg Tablet 650 mg PO Q6H PRN (Reason: Headache/Pain, Scale 1-10) Qty: 0 0RF buspirone 5 mg Tablet 5 mg PO TID 30 Days Qty: 90 0RF gabapentin 100 mg Capsule 100 mg PO TID 30 Days Qty: 90 0RF hydroxyzine HCl 25 mg Tablet 25 mg PO TID PRN (Reason: mild anxiety) 30 Days Qty: 90 0RF naltrexone 50 mg Tablet 25 mg PO BEDTIME 30 Days Qty: 15 0RF quetiapine 100 mg Tablet See Rx Instructions .ROUTE .COMPLEX 30 Days Qty: 60 0RF Rx Instructions: Take 1 tab po qhs. TAke 1/2 tab po bid prn for agitation and/or severe anxiety trazodone 50 mg Tablet See Rx Instructions .ROUTE .COMPLEX PRN (Reason: Insomnia) 30 Days Qty: 60 0RF Rx Instructions: Take 1-2 tabs po qhs prn for insomnia MAG-AL 200-200 mg/5 mL Suspension 30 ml PO Q6H PRN (Reason: Heartburn/Nausea) Qty: 0 0RF omeprazole 20 mg Capsule,Delayed Release(Dr/Ec) 20 mg PO DAILY@0630 30 Days Qty: 30 0RF lidocaine [Lidocaine Pain Relief] 4 % Adhesive Patch,Medicated 1 patch transdermal DAILY 30 Days Qty: 30 0RF Protocol: Apply to: Apply to: left shoulder Print Language: Bruneian
[2025-07-18 05:25] LABS: Hematocrit 34.2 % (42.0-52.0); Hemoglobin 12.1 g/dl (14.0-18.0); Imm Gran Abs Auto 0.03 X10*3/uL (0.00-0.03); Imm Gran Pct Auto 0.4 % (0.0-0.4); Lymphocytes Absolute Auto 2.2 X10*3/uL (1.2-4.9); MANUAL DIFF FLAG NO; Mean Corpuscular HGB Conc 35.4 g/dl (31.0-36.0); Mean Corpuscular Hemoglobin 30.8 pg (27.0-33.0); Mean Corpuscular Volume 87.0 fL (80.0-98.0); NRBC Abs Auto 0.000 X10*3/uL (0.0-0.012); NRBC Pct Auto 0.0 /100WBC (0.0-0.2); Platelet Count 266 X10*3/uL (160-400); Red Blood Count 3.93 X10*6/uL (4.60-5.80); White Blood Count 8.2 X10*3/uL (4.8-10.8)
[2025-07-18 05:40] LABS: Alanine Aminotransferase 29 U/L (0-40); Albumin Level 4.2 g/dL (3.5-5.0); Alkaline Phosphatase 83 U/L (39-117); Anion Gap 18 (12-20); Aspartate Amino Transferase 38 U/L (5-37); Blood Urea Nitrogen 26 mg/dL (9-16); Calcium 8.7 mg/dL (8.4-10.2); Carbon Dioxide 19 mmol/L (22-29); Chloride 103 mmol/L (96-108); Creatinine Clr Calc Pharmacy 51.2; Estimated Glomerular Filt Rate > 60; Magnesium 2.0 mg/dL (1.6-2.6); Potassium 3.6 mmol/L (3.3-5.1); Sodium 136 mmol/L (135-145); Total Protein 7.3 g/dL (6.5-8.0)
[2025-07-18 06:22] LABS: Cannabinoid Screen Urine Not Detected (Not Detect)
--- NOTE | 2025-07-18 07:32 | PC.NURSE ---
Pt has been resting quietly, sleeping mostly with sitter present. When awake for breakfast still endorses SI but doesn't elaborate. No shakes. Low risk for withdrawal.
[2025-07-18 09:33] VITALS: BP 120/56; PULSE 84; RESP 15; TEMP 36.4; O2SAT 96
--- NOTE | 2025-07-18 10:10 | PC.NURSE ---
RN to RN with Gina in Pod. Pt with care team at this time.
--- NOTE | 2025-07-18 11:15 | MHC.CARE ---
Pt will be a Dual DX bedsearch
[2025-07-18] MEDS: OLANZapine 7.5 MG TABLET PO (22:10)
[2025-07-19 06:46] VITALS: BP 132/86; PULSE 70; RESP 20; TEMP 37; O2SAT 97
--- NOTE | 2025-07-19 08:01 | PC.NURSE ---
Assumed care, report received. Pt is currently sleeping, he is brought breakfast.
[2025-07-19] MEDS: Nicotine 14 MG PATCH.TD24 TRANSDERMA (09:11)
[2025-07-19 18:05] VITALS: BP 129/65; PULSE 78; RESP 14; TEMP 37.1; O2SAT 96
[2025-07-19] MEDS: OLANZapine 7.5 MG TABLET PO (20:10)
--- NOTE | 2025-07-20 00:32 | PC.NURSE ---
Patient up and ambulatory to bathroom w/ steady gait. patient denies AH at this time. given snack per request, patient now back to resting in bed.
[2025-07-20 06:39] VITALS: BP 125/77; PULSE 70; RESP 17; TEMP 36.6; O2SAT 98
--- NOTE | 2025-07-20 07:40 | PC.NURSE ---
Assumed care of patint at 0645. Patient eating breakfast in room. Denying any needs at this time. Continuing plan for dual diagnosis.
[2025-07-20] MEDS: Nicotine 14 MG PATCH.TD24 TRANSDERMA (08:36)
[2025-07-20 09:57] VITALS: BP 131/72; PULSE 85; RESP 20; TEMP 36.5; O2SAT 97
--- NOTE | 2025-07-20 12:33 | ECG_ITS ---
Test Reason : qct Blood Pressure : */* mmHG Vent. Rate : 58 BPM Atrial Rate : 58 BPM P-R Int : 134 ms QRS Dur : 88 ms QT Int : 396 ms P-R-T Axes : 50 -31 17 degrees QTcB Int : 388 ms Sinus bradycardia Left axis deviation Minimal voltage criteria for LVH, may be normal variant ( R in aVL ) Abnormal ECG When compared with ECG of 17-Jun-2025 22:14, No significant change was found Referred By: Clari Tomlin Electronically Signed By: Andres Guerra
[2025-07-20 12:57] LABS: Appearance Urine Clear; Glucose Urine UA Negative (Negative); PH 6.0 (5.0-9.0); Specific Gravity - Urine 1.020 (1.005-1.025); UMIC TRIGGER UACC YES
[2025-07-20 13:09] LABS: UACC Culture Trigger YES
[2025-07-20 16:46] VITALS: BP 136/88; PULSE 83; RESP 16; TEMP 37; O2SAT 96
[2025-07-20 16:48] VITALS: BMI 23.0
--- NOTE | 2025-07-20 16:53 | PC.NURSE ---
Kyaw was admitted to [facility] from [facility] on CV for treatment of mood disorder with psychosis..? Precipitants of admission include stress of homelessness, SI with plan to jump into traffic. On admission pt is alert and fully oriented, calm, pleasant and cooperative with care. Mood is depressed. Affect is broad. He is reporting CAH prior to admission but none currently. He confirms he is struggling with sleep d/t nightmares. Thought Process is organized. He denies current ideation, plan or intent to harm self or others. Appetite is good with recent Recent 10 lb weight gain. Pt reports drinking 1-2 beers 2-3 x week with last drink 3 days ago. He reports intranasal cocaine use 3 days ago. Tox Screen is positive for cocaine. Medically Kyaw continues to c/o right shoulder pain which was worked up on his last admission. Dr Lombardi is aware. Safety Checks are q 15 minutes.
[2025-07-20] MEDS: Lidocaine 4 % Patch ADH..PATCH 1 PATCH TRANSDERMA (17:14)
--- NOTE | 2025-07-20 18:19 | PM.EVENT ---
Event Note Date of Service: 07/20/25 Event Note: Met briefly w/ pt after he was admitted this afternoon to offer CV and check in. Will do full psychiatric assessment and admission note tomorrow. Pt signed the CV, states that he feels safe on the unit. He reports that he was homeless, had SI and was hearing voices. He is agreeable w/ continuing current med regimen for now. Time Spent With Patient Time: Total time managing care of this patient today ____ minutes.
[2025-07-20 20:00] VITALS: BP 160/82; PULSE 74; RESP 16; TEMP 37.1; O2SAT 99
[2025-07-20] MEDS: OLANZapine 7.5 MG TABLET PO (20:24)
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
[2025-07-21 07:59] VITALS: BP 127/79; PULSE 76; RESP 16; TEMP 36.4; O2SAT 99
[2025-07-21 08:38] LABS: Cholesterol 146 mg/dL (<200); HDL Cholesterol 50 mg/dL (>40); Triglycerides 72 mg/dL (<150)
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
[2025-07-21] MEDS: Lidocaine 4 % Patch ADH..PATCH 1 PATCH TRANSDERMA (09:52)
[2025-07-21] MEDS: Nicotine 14 MG PATCH.TD24 TRANSDERMA (09:52)
[2025-07-21] MEDS: Milk of Magnesia 30 ML ORAL.SUSP PO (14:55)
[2025-07-21 19:20] VITALS: BP 129/64; PULSE 86; RESP 16; TEMP 36.7; O2SAT 96
[2025-07-21] MEDS: Magnesium Hydrox/Alum Hydrox 30 ML ORAL.SUSP PO (19:25)
--- NOTE | 2025-07-21 20:33 | HO.PSYCHPN ---
Subjective Subjective Date of Service: 07/21/25 Reason For Visit: depression, SI Subjective Notes: Conditional Voluntary Interim History: Chart reviewed. case discussed w/ team Pt reports feeling much better and safe in the hospital. States before, I wanted to kill myself , as he was sleeping on the street. Denies current SI. Reports decreased intensity/frequency of AH of voice telling him you're a piece of shit . Slept okay. Pt feels like current med regimen is helpful and wants to continue it. Denies med SE Medication Compliance: Yes Mental Status Exam Mental Status Exam Narrative: Appearance: Casually dressed. Grooming/hygiene wnl. Good eye contact Attitude: Cooperative Speech: Fluent and wnl in regard to volume, tone, prosody Motor activity: Calm and without any tics, tremors or dyskinesias. Steady gait Mood: better Affect: appropriate, reactive Thought process: goal directed and without evidence of formal thought disorder Thought content: Denies SI/violent ideation Perception: Denies AH/VH and does not appear to respond to internal stimuli Alert/oriented in all spheres Cognition grossly intact Insight: fair Judgment: fair Diagnostics Vital Signs (24Hr): Vital Signs - 24 hr 07/21/25 07:59 07/21/25 19:20 Temperature 97.5 F 98.1 F Pulse Rate 76 86 Respiratory Rate 16 16 Blood Pressure 127/79 129/64 Pulse Oximetry 99 96 Oxygen Delivery Method Room Air Room Air BMI result Body Mass Index 23.0 Labs 07/18/25 05:17 07/18/25 05:17 Labs: Laboratory Results - last 48 hr 07/20/25 07/21/25 12:51 08:10 Estimat Average Glucose 123 Hemoglobin A1c % 5.9 Triglycerides 72 Cholesterol 146 LDL Cholesterol, Calc 82 HDL Cholesterol 50 Urine Color Yellow Urine Appearance Clear Urine pH 6.0 Ur Specific [place] 1.020 Urine Protein Negative Urine Glucose (UA) Negative Urine Ketones Negative Urine Blood Negative Urine Nitrite Negative Ur Leukocyte Esterase Small (1+) H Urine RBC 0-2 Urine WBC 0-5 Ur Squamous Epith Cells 0-2 Urine Bacteria None Seen Hyaline Casts 0-2 Medications Medications Current Medications Acetaminophen (Acetaminophen 325 Mg Tablet) 650 mg PO Q6H PRN PRN Reason: Headache/Pain, Scale 1-10 Al Hydroxide/Mg Hydroxide (Magnesium Hydrox/Alum Hydrox 30 Ml Oral.Susp) 30 ml PO Q6H PRN PRN Reason: Heartburn/Nausea Last Admin: 07/21/25 19:25 Dose: 30 ml Amlodipine Besylate (Amlodipine Besylate 5 Mg Tablet) 5 mg PO DAILY [facility]; Protocol Last Admin: 07/21/25 08:21 Dose: 5 mg Atorvastatin Calcium (Atorvastatin Calcium 80 Mg Tablet) 80 mg PO DAILY [facility] Last Admin: 07/21/25 08:21 Dose: 80 mg Benztropine Mesylate (Benztropine Mesylate 1 Mg Tablet) 1 mg PO BEDTIME [facility] Last Admin: 07/20/25 20:24 Dose: 1 mg Diphenhydramine HCl (Diphenhydramine Hcl 25 Mg Capsule) 50 mg PO BEDTIME [facility] Last Admin: 07/20/25 20:24 Dose: 50 mg Docusate Sodium (Docusate Sodium 100 Mg Capsule) 100 mg PO BID [facility] Lidocaine (Lidocaine 4 % Patch Adh..Patch) 1 patch TRANSDERMA DAILY [facility]; Protocol Last Admin: 07/21/25 09:52 Dose: 1 patch Magnesium Hydroxide (Milk Of Magnesia 30 Ml Oral.Susp) 30 ml PO DAILY PRN PRN Reason: Constipation Last Admin: 07/21/25 14:55 Dose: 30 ml Melatonin (Melatonin 3 Mg Tablet) 6 mg PO BEDTIME PRN PRN Reason: Insomnia Last Admin: 07/20/25 20:24 Dose: 6 mg Nicotine (Nicotine 14 Mg Patch.Td24) 14 mg TRANSDERMA DAILY [facility] Last Admin: 07/21/25 09:52 Dose: 14 mg Olanzapine (Olanzapine 7.5 Mg Tablet) 7.5 mg PO BEDTIME [facility] Last Admin: 07/20/25 20:24 Dose: 7.5 mg Olanzapine (Olanzapine 5 Mg Tablet) 5 mg PO BID PRN PRN Reason: agitation Last Admin: 07/21/25 00:11 Dose: 5 mg Senna (Sennosides 8.6 Mg Tablet) 17.2 mg PO DAILY [facility] Sertraline HCl (Sertraline Hcl 50 Mg Tablet) 50 mg PO DAILY [facility] Last Admin: 07/21/25 08:21 Dose: 50 mg Trazodone HCl (Trazodone Hcl 50 Mg Tablet) 50 mg PO BEDTIME [facility] Last Admin: 07/20/25 20:24 Dose: 50 mg Allergies Allergies Allergy/AdvReac Type Severity Reaction Status Date / Time No Known Allergies Allergy Verified 07/18/25 04:28 Assessment & Plan Assessment & Plan (1) Major depressive disorder, recurrent, unspecified: Status: Acute Code(s): F33.9 - Major depressive disorder, recurrent, unspecified (2) Posttraumatic stress disorder: Status: Acute Code(s): F43.10 - Post-traumatic stress disorder, unspecified (3) HTN (hypertension): Status: Acute Code(s): I10 - Essential (primary) hypertension (4) Alcohol use disorder: Status: Acute Code(s): F10.90 - Alcohol use, unspecified, uncomplicated (5) Cocaine use disorder: Status: Acute Code(s): F14.10 - Cocaine abuse, uncomplicated Plan Pt is a 70 y/o English bilingual but , Nepali speaking, male with h/o depression with psychotic feature, PTSD, polysubstance use and ETOH use d/o who is previously known to the CARE Team via one previous assessment and inpatient admission. pt was assessed in the ED for a similar presentation and discharged with outpatient resources. However, pt returned to the ED via ambulance with a complaint of alcohol intoxication and wanting to . He also reported AH. 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 Pt was [facility] from [facility] on 07/16. Formulation/clinical reasoning: Homeless, limited income ($380/monthly), relapse on substance use and not taking medication after discharge. Relapse on mental health, increased anxiety, depresion and hearing voices and having SI, want to . Limited community support, no current OP psychiatric services. Given above information, patient would benefit in restrictive environment for safety, re-start on medication, and refer patient to OP psychiatric services. 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 Hospital course: 07/20/25: Current passive SI, no plan/intent. Feeling safe here on the unit. re-start all home meds. Reviewed meds list and PRNs available for anxiety and voices/agitation. Patient states that medication was helpful. 07/21: Mood has improved. Denies SI. Continue current tx plan Plan Patient on 15 minute checks for safety. Admitted to M3. CV. Work with treatment team to do collateral for CSS/CCS if possible for aftercare. Patient educated on: medication risk/benefits and therapeutic strategies Reason for continued inpatient stay Substantial Risk for: med/psych decompensation Time Spent With Patient Time: Total time managing care of this patient today ____ minutes.
[2025-07-21] MEDS: OLANZapine 7.5 MG TABLET PO (20:51)
[2025-07-22 08:10] VITALS: BP 131/70; PULSE 75; RESP 16; TEMP 36.4; O2SAT 99
[2025-07-22 08:12] VITALS: BP 131/70
[2025-07-22] MEDS: Nicotine 14 MG PATCH.TD24 TRANSDERMA (08:12)
[2025-07-22] MEDS: Lidocaine 4 % Patch ADH..PATCH 1 PATCH TRANSDERMA (08:12)
--- NOTE | 2025-07-22 10:49 | HO.PSYCHPN ---
Subjective Subjective Date of Service: 07/22/25 Reason For Visit: depression, SI Subjective Notes: Conditional Voluntary Interim History: Active on unit. social with peers. attending groups. Patient reports feeling much better ; denies SI/HI/VH/AH. Observed listening to music on unit headphones and reading Bible. Patient stated, when I'm taking the medications the voices go away . He reports sleeping well last night. continue tx plan. Medication Compliance: Yes Side effects from medications: No Attending Groups: Yes Mental Status Exam Mental Status Exam Patient Appearance: Appropriate Patient Orientation: Person, Place, Time and Situation Level of Consciousness: Awake and Alert Patient Behavior: Appropriate, Cooperative and Good Eye Contact Mood Description: Calm Affect Description: Calm Ability to Follow Directions: Good Speech Pattern: Clear Memory Description: Intact Hallucinations: None Delusions: Not Present Thought Process: Intact Thought Content: positive for Intact Diagnostics Vital Signs (24Hr): Vital Signs - 24 hr 07/21/25 19:20 07/22/25 08:10 07/22/25 08:12 Temperature 98.1 F 97.5 F Pulse Rate 86 75 Respiratory Rate 16 16 Blood Pressure 129/64 131/70 131/70 Pulse Oximetry 96 99 Oxygen Delivery Method Room Air Room Air BMI result Body Mass Index 23.0 Labs 07/18/25 05:17 07/18/25 05:17 Labs: Laboratory Results - last 48 hr 07/20/25 07/21/25 12:51 08:10 Estimat Average Glucose 123 Hemoglobin A1c % 5.9 Triglycerides 72 Cholesterol 146 LDL Cholesterol, Calc 82 HDL Cholesterol 50 Urine Color Yellow Urine Appearance Clear Urine pH 6.0 Ur Specific [place] 1.020 Urine Protein Negative Urine Glucose (UA) Negative Urine Ketones Negative Urine Blood Negative Urine Nitrite Negative Ur Leukocyte Esterase Small (1+) H Urine RBC 0-2 Urine WBC 0-5 Ur Squamous Epith Cells 0-2 Urine Bacteria None Seen Hyaline Casts 0-2 Medications Medications Current Medications Acetaminophen (Acetaminophen 325 Mg Tablet) 650 mg PO Q6H PRN PRN Reason: Headache/Pain, Scale 1-10 Al Hydroxide/Mg Hydroxide (Magnesium Hydrox/Alum Hydrox 30 Ml Oral.Susp) 30 ml PO Q6H PRN PRN Reason: Heartburn/Nausea Last Admin: 07/21/25 19:25 Dose: 30 ml Amlodipine Besylate (Amlodipine Besylate 5 Mg Tablet) 5 mg PO DAILY [facility]; Protocol Last Admin: 07/22/25 08:12 Dose: 5 mg Atorvastatin Calcium (Atorvastatin Calcium 80 Mg Tablet) 80 mg PO DAILY [facility] Last Admin: 07/22/25 08:12 Dose: 80 mg Benztropine Mesylate (Benztropine Mesylate 1 Mg Tablet) 1 mg PO BEDTIME [facility] Last Admin: 07/21/25 20:51 Dose: 1 mg Diphenhydramine HCl (Diphenhydramine Hcl 25 Mg Capsule) 50 mg PO BEDTIME [facility] Last Admin: 07/21/25 20:51 Dose: 50 mg Docusate Sodium (Docusate Sodium 100 Mg Capsule) 100 mg PO BID [facility] Last Admin: 07/22/25 08:12 Dose: 100 mg Lidocaine (Lidocaine 4 % Patch Adh..Patch) 1 patch TRANSDERMA DAILY [facility]; Protocol Last Admin: 07/22/25 08:12 Dose: 1 patch Magnesium Hydroxide (Milk Of Magnesia 30 Ml Oral.Susp) 30 ml PO DAILY PRN PRN Reason: Constipation Last Admin: 07/21/25 14:55 Dose: 30 ml Melatonin (Melatonin 3 Mg Tablet) 6 mg PO BEDTIME PRN PRN Reason: Insomnia Last Admin: 07/20/25 20:24 Dose: 6 mg Nicotine (Nicotine 14 Mg Patch.Td24) 14 mg TRANSDERMA DAILY [facility] Last Admin: 07/22/25 08:12 Dose: 14 mg Olanzapine (Olanzapine 7.5 Mg Tablet) 7.5 mg PO BEDTIME [facility] Last Admin: 07/21/25 20:51 Dose: 7.5 mg Olanzapine (Olanzapine 5 Mg Tablet) 5 mg PO BID PRN PRN Reason: agitation Last Admin: 07/21/25 00:11 Dose: 5 mg Senna (Sennosides 8.6 Mg Tablet) 17.2 mg PO DAILY [facility] Last Admin: 07/22/25 08:11 Dose: 17.2 mg Sertraline HCl (Sertraline Hcl 50 Mg Tablet) 50 mg PO DAILY [facility] Last Admin: 07/22/25 08:12 Dose: 50 mg Trazodone HCl (Trazodone Hcl 50 Mg Tablet) 50 mg PO BEDTIME [facility] Last Admin: 07/21/25 20:51 Dose: 50 mg Allergies Allergies Allergy/AdvReac Type Severity Reaction Status Date / Time No Known Allergies Allergy Verified 07/18/25 04:28 Assessment & Plan Assessment & Plan (1) Major depressive disorder, recurrent, unspecified: Status: Acute Code(s): F33.9 - Major depressive disorder, recurrent, unspecified (2) Posttraumatic stress disorder: Status: Acute Code(s): F43.10 - Post-traumatic stress disorder, unspecified (3) HTN (hypertension): Status: Acute Code(s): I10 - Essential (primary) hypertension (4) Alcohol use disorder: Status: Acute Code(s): F10.90 - Alcohol use, unspecified, uncomplicated (5) Cocaine use disorder: Status: Acute Code(s): F14.10 - Cocaine abuse, uncomplicated Plan Pt is a 70 y/o Austrian bilingual but , Mohawk speaking, male with h/o depression with psychotic feature, PTSD, polysubstance use and ETOH use d/o who is previously known to the CARE Team via one previous assessment and inpatient admission. pt was assessed in the ED for a similar presentation and discharged with outpatient resources. However, pt returned to the ED via ambulance with a complaint of alcohol intoxication and wanting to . He also reported AH. 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 Pt was discharged from [facility] on 07/16. Formulation/clinical reasoning: Homeless, limited income ($380/monthly), relapse on substance use and not taking medication after discharge. Relapse on mental health, increased anxiety, depresion and hearing voices and having SI, want to . Limited community support, no current OP psychiatric services. Given above information, patient would benefit in restrictive environment for safety, re-start on medication, and refer patient to OP psychiatric services. 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 Hospital course: 07/20/25: Current passive SI, no plan/intent. Feeling safe here on the unit. re-start all home meds. Reviewed meds list and PRNs available for anxiety and voices/agitation. Patient states that medication was helpful. 07/21: Mood has improved. Denies SI. Continue current tx plan 07/22:Active on unit. social with peers. attending groups. Patient reports feeling much better ; denies SI/HI/VH/AH. Observed listening to music on unit headphones and reading Bible. Patient stated, when I'm taking the medications the voices go away . He reports sleeping well last night. continue tx plan. Plan Patient on 15 minute checks for safety. Admitted to M3. CV. Work with treatment team to do collateral for CSS/CCS if possible for aftercare. Patient educated on: diagnosis and medication risk/benefits Reason for continued inpatient stay Substantial Risk for: med/psych decompensation Time Spent With Patient Time: Total time managing care of this patient today _20___ minutes.
[2025-07-22 19:15] VITALS: BP 122/69; PULSE 84; RESP 16; TEMP 36.7; O2SAT 97
[2025-07-22] MEDS: OLANZapine 7.5 MG TABLET PO (20:46)
[2025-07-23 07:00] VITALS: BMI 23.4
[2025-07-23 08:10] VITALS: BP 123/75; PULSE 78; RESP 16; TEMP 36.4; O2SAT 98
[2025-07-23 09:07] VITALS: BP 123/75
[2025-07-23] MEDS: Lidocaine 4 % Patch ADH..PATCH 1 PATCH TRANSDERMA (09:21)
[2025-07-23 19:31] VITALS: BP 119/75; PULSE 84; RESP 16; TEMP 36.4; O2SAT 97
[2025-07-23] MEDS: OLANZapine 7.5 MG TABLET PO (22:26)
--- NOTE | 2025-07-23 23:29 | P.PNPSI_ITS ---
Subjective Subjective Date of Service: 07/23/25 Reason For Visit: depression, SI Subjective Notes: Conditional Voluntary Healthcare Proxy: No Guardianship: No Medical Problems Affecting Mental Status: No Interim History: Medical record and nursing notes reviewed; case discussed during rounds with team/nursing staff, and met with patient for supportive therapy/psychoeducation, as well as medication management. Patient reports no issues with sleep or appetite. Report no anxiety or depression. Denies safety concerns or voices. Medication compliant, denies side effects. However, report constipation. No BM x3 days. Request Mag citrate. ordered with pending effects. Medication Compliance: Yes Side effects from medications: Yes (constipation) Attending Groups: Yes Review of Systems Acute medical concerns: No Medical Review of Systems: unchanged Review of Systems Review of Systems Denies any shortness of breath, chest pain, headaches, dysuria, abdominal pain or discomfort, nausea, vomiting or diarrhea. Denies fever or chills. Yes all other systems are reviewed and are negative Mental Status Exam Mental Status Exam Patient Appearance: Appropriate Patient Orientation: Person, Place, Time and Situation Level of Consciousness: Awake and Alert Patient Behavior: Appropriate, Cooperative and Good Eye Contact Mood Description: Calm Affect Description: Calm Ability to Follow Directions: Good Speech Pattern: Clear Memory Description: Intact Hallucinations: None Delusions: Not Present Thought Process: Intact Thought Content: positive for Intact Diagnostics Vital Signs (24Hr): Vital Signs - 24 hr 07/23/25 08:10 07/23/25 09:07 Temperature 97.6 F Pulse Rate 78 Respiratory Rate 16 Blood Pressure 123/75 123/75 Pulse Oximetry 98 Oxygen Delivery Method Room Air BMI result Body Mass Index 23.4 Labs 07/18/25 05:17 07/18/25 05:17 Medications Medications Current Medications Acetaminophen (Acetaminophen 325 Mg Tablet) 650 mg PO Q6H PRN PRN Reason: Headache/Pain, Scale 1-10 Al Hydroxide/Mg Hydroxide (Magnesium Hydrox/Alum Hydrox 30 Ml Oral.Susp) 30 ml PO Q6H PRN PRN Reason: Heartburn/Nausea Last Admin: 07/21/25 19:25 Dose: 30 ml Amlodipine Besylate (Amlodipine Besylate 5 Mg Tablet) 5 mg PO DAILY [facility]; Protocol Last Admin: 07/23/25 09:07 Dose: 5 mg Atorvastatin Calcium (Atorvastatin Calcium 80 Mg Tablet) 80 mg PO DAILY [facility] Last Admin: 07/23/25 09:07 Dose: 80 mg Benztropine Mesylate (Benztropine Mesylate 1 Mg Tablet) 1 mg PO BEDTIME [facility] Last Admin: 07/23/25 22:27 Dose: 1 mg Diphenhydramine HCl (Diphenhydramine Hcl 25 Mg Capsule) 50 mg PO BEDTIME [facility] Last Admin: 07/23/25 22:27 Dose: 50 mg Docusate Sodium (Docusate Sodium 100 Mg Capsule) 100 mg PO BID [facility] Last Admin: 07/23/25 22:26 Dose: 100 mg Lidocaine (Lidocaine 4 % Patch Adh..Patch) 1 patch TRANSDERMA DAILY [facility]; Protocol Last Admin: 07/23/25 09:21 Dose: 1 patch Magnesium Hydroxide (Milk Of Magnesia 30 Ml Oral.Susp) 30 ml PO DAILY PRN PRN Reason: Constipation Last Admin: 07/21/25 14:55 Dose: 30 ml Melatonin (Melatonin 3 Mg Tablet) 6 mg PO BEDTIME PRN PRN Reason: Insomnia Last Admin: 07/20/25 20:24 Dose: 6 mg Nicotine (Nicotine 14 Mg Patch.Td24) 14 mg TRANSDERMA DAILY [facility] Last Admin: 07/23/25 09:24 Dose: Not Given Olanzapine (Olanzapine 7.5 Mg Tablet) 7.5 mg PO BEDTIME [facility] Last Admin: 07/23/25 22:26 Dose: 7.5 mg Olanzapine (Olanzapine 5 Mg Tablet) 5 mg PO BID PRN PRN Reason: agitation Last Admin: 07/21/25 00:11 Dose: 5 mg Senna (Sennosides 8.6 Mg Tablet) 17.2 mg PO DAILY [facility] Last Admin: 07/23/25 09:07 Dose: 17.2 mg Sertraline HCl (Sertraline Hcl 50 Mg Tablet) 50 mg PO DAILY [facility] Last Admin: 07/23/25 09:07 Dose: 50 mg Trazodone HCl (Trazodone Hcl 50 Mg Tablet) 50 mg PO BEDTIME [facility] Last Admin: 07/23/25 22:26 Dose: 50 mg Allergies Allergies Allergy/AdvReac Type Severity Reaction Status Date / Time No Known Allergies Allergy Verified 07/18/25 04:28 Assessment & Plan Assessment & Plan (1) Major depressive disorder, recurrent, unspecified: Status: Acute Code(s): F33.9 - Major depressive disorder, recurrent, unspecified (2) Posttraumatic stress disorder: Status: Acute Code(s): F43.10 - Post-traumatic stress disorder, unspecified (3) HTN (hypertension): Status: Acute Code(s): I10 - Essential (primary) hypertension (4) Alcohol use disorder: Status: Acute Code(s): F10.90 - Alcohol use, unspecified, uncomplicated (5) Cocaine use disorder: Status: Acute Code(s): F14.10 - Cocaine abuse, uncomplicated Plan Pt is a 70 y/o Cameroonian bilingual but , Telugu speaking, male with h/o depression with psychotic feature, PTSD, polysubstance use and ETOH use d/o who is previously known to the CARE Team via one previous assessment and inpatient admission. pt was assessed in the ED for a similar presentation and discharged with outpatient resources. However, pt returned to the ED via ambulance with a complaint of alcohol intoxication and wanting to . He also reported AH. 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 Pt was discharged from [facility] on 07/16. Formulation/clinical reasoning: Homeless, limited income ($380/monthly), relapse on substance use and not taking medication after discharge. Relapse on mental health, increased anxiety, depresion and hearing voices and having SI, want to . Limited community support, no current OP psychiatric services. Given above information, patient would benefit in restrictive environment for safety, re- start on medication, and refer patient to OP psychiatric services. patient would be a good candidate for assisted substance use treatment. Hospital course: 07/20/25: Current passive SI, no plan/intent. Feeling safe here on the unit. re-start all home meds. Reviewed meds list and PRNs available for anxiety and voices/agitation. Patient states that medication was helpful. 07/21: Mood has improved. Denies SI. Continue current tx plan 07/22:Active on unit. social with peers. attending groups. Patient reports feeling much better ; denies SI/HI/VH/AH. Observed listening to music on unit headphones and reading Bible. Patient stated, when I'm taking the medications the voices go away . He reports sleeping well last night. continue tx plan. 07/23/25: Patient reports no issues with sleep or appetite. Report no anxiety or depression. Denies safety concerns or voices. Medication compliant, denies side effects. However, report constipation. No BM x3 days. Request Mag citrate. ordered with pending effects. Plan Patient on 15 minute checks for safety. Admitted to M3. CV. Work with treatment team to do collateral for CSS/CCS if possible for aftercare. Patient educated on: diagnosis, medication risk/benefits, substance abuse and therapeutic strategies Informed Consent: understands and further education needed Reason for continued inpatient stay Substantial Risk for: med/psych decompensation Time Spent With Patient Time: Total time managing care of this patient today ____ minutes.
--- NOTE | 2025-07-24 05:42 | P.PNPSI_ITS ---
Subjective Subjective Date of Service: 07/24/25 Reason For Visit: depression, SI Subjective Notes: Conditional Voluntary Interim History: Chart reviewed. Case discussed in team Pt reports that he's been feeling good. Denies SI, violent ideation. He hasn't heard the voices since he restarting his meds. He has an appt to look at a potential room to rent on Sunday at 3 pm. He agrees w/ plan to d/c on Sunday ~11:30 am and his niece will pick him up. Visible in milieu Interacting appropriately w/ peers Medication Compliance: Yes Side effects from medications: No Mental Status Exam Mental Status Exam Narrative: Appearance: Grooming/hygiene fair. Good eye contact. Attitude: Cooperative Speech: Fluent and wnl in regard to volume, tone, prosody Motor activity: Calm and without any tics, tremors or dyskinesias. Mood: good Affect: appropriate, reactive, generally bright Thought process: goal directed and without evidence of formal thought disorder Thought content: as noted above. future oriented Perception: Denies AH/VH and does not appear to respond to internal stimuli Alert/oriented in all spheres Cognition grossly intact Insight: intact Judgment: intact Diagnostics Vital Signs (24Hr): Vital Signs - 24 hr 07/23/25 08:10 07/23/25 09:07 07/23/25 19:31 Temperature 97.6 F 97.5 F Pulse Rate 78 84 Respiratory Rate 16 16 Blood Pressure 123/75 123/75 119/75 Pulse Oximetry 98 97 Oxygen Delivery Method Room Air Room Air BMI result Body Mass Index 23.4 Labs 07/18/25 05:17 07/18/25 05:17 EKG EKG: reviewed Medications Medications Current Medications Acetaminophen (Acetaminophen 325 Mg Tablet) 650 mg PO Q6H PRN PRN Reason: Headache/Pain, Scale 1-10 Al Hydroxide/Mg Hydroxide (Magnesium Hydrox/Alum Hydrox 30 Ml Oral.Susp) 30 ml PO Q6H PRN PRN Reason: Heartburn/Nausea Last Admin: 07/21/25 19:25 Dose: 30 ml Amlodipine Besylate (Amlodipine Besylate 5 Mg Tablet) 5 mg PO DAILY [facility]; Protocol Last Admin: 07/23/25 09:07 Dose: 5 mg Atorvastatin Calcium (Atorvastatin Calcium 80 Mg Tablet) 80 mg PO DAILY [facility] Last Admin: 07/23/25 09:07 Dose: 80 mg Benztropine Mesylate (Benztropine Mesylate 1 Mg Tablet) 1 mg PO BEDTIME [facility] Last Admin: 07/23/25 22:27 Dose: 1 mg Diphenhydramine HCl (Diphenhydramine Hcl 25 Mg Capsule) 50 mg PO BEDTIME [facility] Last Admin: 07/23/25 22:27 Dose: 50 mg Docusate Sodium (Docusate Sodium 100 Mg Capsule) 100 mg PO BID [facility] Last Admin: 07/23/25 22:26 Dose: 100 mg Lidocaine (Lidocaine 4 % Patch Adh..Patch) 1 patch TRANSDERMA DAILY [facility]; Protocol Last Admin: 07/23/25 09:21 Dose: 1 patch Magnesium Hydroxide (Milk Of Magnesia 30 Ml Oral.Susp) 30 ml PO DAILY PRN PRN Reason: Constipation Last Admin: 07/21/25 14:55 Dose: 30 ml Melatonin (Melatonin 3 Mg Tablet) 6 mg PO BEDTIME PRN PRN Reason: Insomnia Last Admin: 07/20/25 20:24 Dose: 6 mg Nicotine (Nicotine 14 Mg Patch.Td24) 14 mg TRANSDERMA DAILY [facility] Last Admin: 07/23/25 09:24 Dose: Not Given Olanzapine (Olanzapine 7.5 Mg Tablet) 7.5 mg PO BEDTIME [facility] Last Admin: 07/23/25 22:26 Dose: 7.5 mg Olanzapine (Olanzapine 5 Mg Tablet) 5 mg PO BID PRN PRN Reason: agitation Last Admin: 07/21/25 00:11 Dose: 5 mg Senna (Sennosides 8.6 Mg Tablet) 17.2 mg PO DAILY [facility] Last Admin: 07/23/25 09:07 Dose: 17.2 mg Sertraline HCl (Sertraline Hcl 50 Mg Tablet) 50 mg PO DAILY [facility] Last Admin: 07/23/25 09:07 Dose: 50 mg Trazodone HCl (Trazodone Hcl 50 Mg Tablet) 50 mg PO BEDTIME [facility] Last Admin: 07/23/25 22:26 Dose: 50 mg Allergies Allergies Allergy/AdvReac Type Severity Reaction Status Date / Time No Known Allergies Allergy Verified 07/18/25 04:28 Assessment & Plan Assessment & Plan (1) Major depressive disorder, recurrent, unspecified: Status: Acute Code(s): F33.9 - Major depressive disorder, recurrent, unspecified (2) Posttraumatic stress disorder: Status: Acute Code(s): F43.10 - Post-traumatic stress disorder, unspecified (3) HTN (hypertension): Status: Acute Code(s): I10 - Essential (primary) hypertension (4) Alcohol use disorder: Status: Acute Code(s): F10.90 - Alcohol use, unspecified, uncomplicated (5) Cocaine use disorder: Status: Acute Code(s): F14.10 - Cocaine abuse, uncomplicated Plan Pt is a 70 y/o English bilingual but , Luxembourgish speaking, male with h/o depression with psychotic feature, PTSD, polysubstance use and ETOH use d/o who is previously known to the CARE Team via one previous assessment and inpatient admission. pt was assessed in the ED for a similar presentation and discharged with outpatient resources. However, pt returned to the ED via ambulance with a complaint of alcohol intoxication and wanting to . He also reported AH. 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 Pt was discharged from [facility] on 07/16. Formulation/clinical reasoning: Homeless, limited income ($380/monthly), relapse on substance use and not taking medication after discharge. Relapse on mental health, increased anxiety, depresion and hearing voices and having SI, want to . Limited community support, no current OP psychiatric services. Given above information, patient would benefit in restrictive environment for safety, re- start on medication, and refer patient to OP psychiatric services. patient would be a good candidate for senior living substance use treatment. Hospital course: 07/20/25: Current passive SI, no plan/intent. Feeling safe here on the unit. re-start all home meds. Reviewed meds list and PRNs available for anxiety and voices/agitation. Patient states that medication was helpful. 07/21: Mood has improved. Denies SI. Continue current tx plan 07/22:Active on unit. social with peers. attending groups. Patient reports feeling much better ; denies SI/HI/VH/AH. Observed listening to music on unit headphones and reading Bible. Patient stated, when I'm taking the medications the voices go away . He reports sleeping well last night. continue tx plan. 07/23/25: Patient reports no issues with sleep or appetite. Report no anxiety or depression. Denies safety concerns or voices. Medication compliant, denies side effects. However, report constipation. No BM x3 days. Request Mag citrate. ordered with pending effects. 07/24/25: Continue current tx plan. Will d/c Sunday at 11:30, niece will pick him up. Patient on 15 minute checks for safety. Admitted to M3. CV. Work with treatment team to do collateral for CSS/CCS if possible for aftercare. Reason for continued inpatient stay Substantial Risk for: med/psych decompensation Time Spent With Patient Time: Total time managing care of this patient today ____ minutes.
[2025-07-24 08:34] VITALS: BP 120/78; PULSE 65; RESP 20; TEMP 37; O2SAT 98
[2025-07-24] MEDS: Lidocaine 4 % Patch ADH..PATCH 1 PATCH TRANSDERMA (09:26)
[2025-07-24 20:00] VITALS: BP 109/58; PULSE 72; RESP 16; TEMP 36.5; O2SAT 97
[2025-07-24] MEDS: OLANZapine 7.5 MG TABLET PO (20:11)
[2025-07-25 07:10] VITALS: BP 125/80; PULSE 72; RESP 16; TEMP 36.4; O2SAT 99
[2025-07-25] MEDS: Nicotine 14 MG PATCH.TD24 TRANSDERMA (08:50)
[2025-07-25] MEDS: Lidocaine 4 % Patch ADH..PATCH 1 PATCH TRANSDERMA (08:50)
[2025-07-25 20:00] VITALS: BP 128/77; PULSE 79; RESP 16; TEMP 36.5; O2SAT 99
[2025-07-25] MEDS: OLANZapine 7.5 MG TABLET PO (21:00)
--- NOTE | 2025-07-25 23:46 | P.PNPSI_ITS ---
Subjective Subjective Date of Service: 07/25/25 Reason For Visit: depression, SI Subjective Notes: Conditional Voluntary Healthcare Proxy: No Guardianship: No Medical Problems Affecting Mental Status: No Interim History: Medical record and nursing notes reviewed; case discussed during rounds with team/nursing staff, and met with patient for supportive therapy/psychoeducation, as well as medication management. Patient is visible, coloring, happy, bright affect, denies safety concerns, denies hallucinations stated that medication is working no more voices . Patient said he is living tomorrow to the halfway in [facility]. He is ready for tomorrow discharge. Per nursing, patient slept for 8 hours, no behavior issues, compliant with medications. Side effects. Continue with current treatment plan. Medication Compliance: Yes Side effects from medications: No Attending Groups: Yes Review of Systems Acute medical concerns: No Medical Review of Systems: unchanged Review of Systems Review of Systems Denies any shortness of breath, chest pain, headaches, dysuria, abdominal pain or discomfort, nausea, vomiting or diarrhea. Denies fever or chills. Yes all other systems are reviewed and are negative Mental Status Exam Mental Status Exam Narrative: Appearance: Casually dressed. Grooming/hygiene wnl. Good eye contact Speech: Fluent and wnl in regard to volume, tone, prosody Motor activity: Calm. No tics, tremors or dyskinesias. Steady gait Mood: good Affect: appropriate, reactive Thought process: goal directed and without evidence of formal thought disorder Thought content: Denies SI/violent ideation Perception: Denies current AH/VH and does not appear to respond to internal stimuli Alert/oriented in all spheres Insight: fair- improved Judgment: fair- improved Diagnostics Vital Signs (24Hr): Vital Signs - 24 hr 07/25/25 07:10 07/25/25 20:00 Temperature 97.5 F 97.7 F Pulse Rate 72 79 Respiratory Rate 16 16 Blood Pressure 125/80 128/77 Pulse Oximetry 99 99 Oxygen Delivery Method Room Air Room Air BMI result Body Mass Index 23.4 Labs 07/18/25 05:17 07/18/25 05:17 Medications Medications Current Medications Acetaminophen (Acetaminophen 325 Mg Tablet) 650 mg PO Q6H PRN PRN Reason: Headache/Pain, Scale 1-10 Al Hydroxide/Mg Hydroxide (Magnesium Hydrox/Alum Hydrox 30 Ml Oral.Susp) 30 ml PO Q6H PRN PRN Reason: Heartburn/Nausea Last Admin: 07/21/25 19:25 Dose: 30 ml Amlodipine Besylate (Amlodipine Besylate 5 Mg Tablet) 5 mg PO DAILY [facility]; Protocol Last Admin: 07/25/25 08:52 Dose: 5 mg Atorvastatin Calcium (Atorvastatin Calcium 80 Mg Tablet) 80 mg PO DAILY [facility] Last Admin: 07/25/25 08:52 Dose: 80 mg Benztropine Mesylate (Benztropine Mesylate 1 Mg Tablet) 1 mg PO BEDTIME [facility] Last Admin: 07/25/25 21:00 Dose: 1 mg Diphenhydramine HCl (Diphenhydramine Hcl 25 Mg Capsule) 50 mg PO BEDTIME [facility] Last Admin: 07/25/25 20:59 Dose: 50 mg Docusate Sodium (Docusate Sodium 100 Mg Capsule) 100 mg PO BID [facility] Last Admin: 07/25/25 21:00 Dose: 100 mg Lidocaine (Lidocaine 4 % Patch Adh..Patch) 1 patch TRANSDERMA DAILY [facility]; Protocol Last Admin: 07/25/25 08:50 Dose: 1 patch Magnesium Hydroxide (Milk Of Magnesia 30 Ml Oral.Susp) 30 ml PO DAILY PRN PRN Reason: Constipation Last Admin: 07/21/25 14:55 Dose: 30 ml Melatonin (Melatonin 3 Mg Tablet) 6 mg PO BEDTIME PRN PRN Reason: Insomnia Last Admin: 07/25/25 20:59 Dose: 6 mg Nicotine (Nicotine 14 Mg Patch.Td24) 14 mg TRANSDERMA DAILY [facility] Last Admin: 07/25/25 08:50 Dose: 14 mg Olanzapine (Olanzapine 7.5 Mg Tablet) 7.5 mg PO BEDTIME [facility] Last Admin: 07/25/25 21:00 Dose: 7.5 mg Olanzapine (Olanzapine 5 Mg Tablet) 5 mg PO BID PRN PRN Reason: agitation Last Admin: 07/21/25 00:11 Dose: 5 mg Senna (Sennosides 8.6 Mg Tablet) 17.2 mg PO DAILY [facility] Last Admin: 07/25/25 08:52 Dose: 17.2 mg Sertraline HCl (Sertraline Hcl 50 Mg Tablet) 50 mg PO DAILY [facility] Last Admin: 07/25/25 08:52 Dose: 50 mg Trazodone HCl (Trazodone Hcl 50 Mg Tablet) 50 mg PO BEDTIME [facility] Last Admin: 07/25/25 21:00 Dose: 50 mg Allergies Allergies Allergy/AdvReac Type Severity Reaction Status Date / Time No Known Allergies Allergy Verified 07/18/25 04:28 Assessment & Plan Assessment & Plan (1) Major depressive disorder, recurrent, unspecified: Status: Acute Code(s): F33.9 - Major depressive disorder, recurrent, unspecified (2) Posttraumatic stress disorder: Status: Acute Code(s): F43.10 - Post-traumatic stress disorder, unspecified (3) HTN (hypertension): Status: Acute Code(s): I10 - Essential (primary) hypertension (4) Alcohol use disorder: Status: Acute Code(s): F10.90 - Alcohol use, unspecified, uncomplicated (5) Cocaine use disorder: Status: Acute Code(s): F14.10 - Cocaine abuse, uncomplicated Plan Pt is a 70 y/o Japanese bilingual but , Serbian speaking, male with h/o depression with psychotic feature, PTSD, polysubstance use and ETOH use d/o who is previously known to the CARE Team via one previous assessment and inpatient admission. pt was assessed in the ED for a similar presentation and discharged with outpatient resources. However, pt returned to the ED via ambulance with a complaint of alcohol intoxication and wanting to . He also reported AH. 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 Pt was discharged from [facility] on 07/16. Formulation/clinical reasoning: Homeless, limited income ($380/monthly), relapse on substance use and not taking medication after discharge. Relapse on mental health, increased anxiety, depresion and hearing voices and having SI, want to . Limited community support, no current OP psychiatric services. Given above information, patient would benefit in restrictive environment for safety, re- start on medication, and refer patient to OP psychiatric services. 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 Hospital course: 07/20/25: Current passive SI, no plan/intent. Feeling safe here on the unit. re-start all home meds. Reviewed meds list and PRNs available for anxiety and voices/agitation. Patient states that medication was helpful. 07/21: Mood has improved. Denies SI. Continue current tx plan 07/22:Active on unit. social with peers. attending groups. Patient reports feeling much better ; denies SI/HI/VH/AH. Observed listening to music on unit headphones and reading Bible. Patient stated, when I'm taking the medications the voices go away . He reports sleeping well last night. continue tx plan. 07/23/25: Patient reports no issues with sleep or appetite. Report no anxiety or depression. Denies safety concerns or voices. Medication compliant, denies side effects. However, report constipation. No BM x3 days. Request Mag citrate. ordered with pending effects. 07/24/25: Continue current tx plan. Will d/c Sunday at 11:30, niece will pick him up. 07/25/25: Patient is visible, coloring, happy, bright affect, denies safety concerns, denies hallucinations stated that medication is working no more voices . Patient said he is living tomorrow to the halfway in [facility]. He is ready for tomorrow discharge. Per nursing, patient slept for 8 hours, no behavior issues, compliant with medications. Side effects. Continue with current treatment plan. Patient on 15 minute checks for safety. Admitted to M3. CV. Posible to be discharged to Cust[facility]ial On Sunday. Patient educated on: diagnosis, medication risk/benefits, substance abuse and therapeutic strategies Informed Consent: understands Reason for continued inpatient stay Substantial Risk for: med/psych decompensation Time Spent With Patient Time: Total time managing care of this patient today ____ minutes.
[2025-07-26 08:45] VITALS: BP 109/58; PULSE 79; RESP 20; TEMP 36.4; O2SAT 98
[2025-07-26 08:53] VITALS: BP 109/58
[2025-07-26] MEDS: Nicotine 14 MG PATCH.TD24 TRANSDERMA (08:53)
[2025-07-26] MEDS: Lidocaine 4 % Patch ADH..PATCH 1 PATCH TRANSDERMA (08:54)
[2025-07-26 19:25] VITALS: BP 135/60; PULSE 79; RESP 14; TEMP 36.6; O2SAT 98
[2025-07-26] MEDS: OLANZapine 7.5 MG TABLET PO (20:53)
--- NOTE | 2025-07-26 22:00 | HO.PSYCHPN ---
Subjective Subjective Date of Service: 07/26/25 Reason For Visit: depression, SI Subjective Notes: Conditional Voluntary Healthcare Proxy: No Guardianship: No Medical Problems Affecting Mental Status: No Interim History: Medical record and nursing notes reviewed; case discussed during rounds with team/nursing staff, and met with patient for supportive therapy/psychoeducation, as well as medication management. 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 He is so happy that he he has been taking good care of by staff on the unit. Reported that he has medication twice a day which is very helpful for the voices. Denies hallucinations or safety concerns. Reported that he will pick up attendant sure that he take medication from pharmacy upon discharge and make sure that he will take it. He said he is going [facility] for the residential. Patient slept well, denies side effects. No issues. Ready for discharge. Continued with current treatment plan. It will be benefit for patient to get the medication feel at [facility] pharmacy. Medication Compliance: Yes Side effects from medications: No Attending Groups: Yes Review of Systems Acute medical concerns: No Medical Review of Systems: unchanged Review of Systems Review of Systems Denies any shortness of breath, chest pain, headaches, dysuria, abdominal pain or discomfort, nausea, vomiting or diarrhea. Denies fever or chills. Yes all other systems are reviewed and are negative Mental Status Exam Mental Status Exam Narrative: Appearance: Casually dressed. Grooming/hygiene wnl. Good eye contact Speech: Fluent and wnl in regard to volume, tone, prosody Motor activity: Calm. No tics, tremors or dyskinesias. Steady gait Mood: good and happy Affect: appropriate, reactive Thought process: goal directed and without evidence of formal thought disorder Thought content: Denies SI/violent ideation Perception: denies Alert/oriented in all spheres Insight: fair Judgment: fair- fair Diagnostics Vital Signs (24Hr): Vital Signs - 24 hr 07/26/25 08:45 07/26/25 08:53 07/26/25 19:25 Temperature 97.5 F 97.9 F Pulse Rate 79 79 Respiratory Rate 20 14 Blood Pressure 109/58 L 109/58 L 135/60 Pulse Oximetry 98 98 Oxygen Delivery Method Room Air Room Air BMI result Body Mass Index 23.4 Labs 07/18/25 05:17 07/18/25 05:17 Medications Medications Current Medications Acetaminophen (Acetaminophen 325 Mg Tablet) 650 mg PO Q6H PRN PRN Reason: Headache/Pain, Scale 1-10 Al Hydroxide/Mg Hydroxide (Magnesium Hydrox/Alum Hydrox 30 Ml Oral.Susp) 30 ml PO Q6H PRN PRN Reason: Heartburn/Nausea Last Admin: 07/21/25 19:25 Dose: 30 ml Amlodipine Besylate (Amlodipine Besylate 5 Mg Tablet) 5 mg PO DAILY AIMEE; Protocol Last Admin: 07/26/25 08:53 Dose: 5 mg Atorvastatin Calcium (Atorvastatin Calcium 80 Mg Tablet) 80 mg PO DAILY AIMEE Last Admin: 07/26/25 08:53 Dose: 80 mg Benztropine Mesylate (Benztropine Mesylate 1 Mg Tablet) 1 mg PO BEDTIME AIMEE Last Admin: 07/26/25 20:53 Dose: 1 mg Diphenhydramine HCl (Diphenhydramine Hcl 25 Mg Capsule) 50 mg PO BEDTIME AIMEE Last Admin: 07/26/25 20:53 Dose: 50 mg Docusate Sodium (Docusate Sodium 100 Mg Capsule) 100 mg PO BID AIMEE Last Admin: 07/26/25 20:53 Dose: 100 mg Lidocaine (Lidocaine 4 % Patch Adh..Patch) 1 patch TRANSDERMA DAILY [facility]; Protocol Last Admin: 07/26/25 08:54 Dose: 1 patch Magnesium Hydroxide (Milk Of Magnesia 30 Ml Oral.Susp) 30 ml PO DAILY PRN PRN Reason: Constipation Last Admin: 07/21/25 14:55 Dose: 30 ml Melatonin (Melatonin 3 Mg Tablet) 6 mg PO BEDTIME PRN PRN Reason: Insomnia Last Admin: 07/25/25 20:59 Dose: 6 mg Nicotine (Nicotine 14 Mg Patch.Td24) 14 mg TRANSDERMA DAILY [facility]IM[facility] Last Admin: 07/26/25 08:53 Dose: 14 mg Olanzapine (Olanzapine 7.5 Mg Tablet) 7.5 mg PO BEDTIME AIMEE Last Admin: 07/26/25 20:53 Dose: 7.5 mg Olanzapine (Olanzapine 5 Mg Tablet) 5 mg PO BID PRN PRN Reason: agitation Last Admin: 07/21/25 00:11 Dose: 5 mg Senna (Sennosides 8.6 Mg Tablet) 17.2 mg PO DAILY AIMEE Last Admin: 07/26/25 08:53 Dose: 17.2 mg Sertraline HCl (Sertraline Hcl 50 Mg Tablet) 50 mg PO DAILY [facility] Last Admin: 07/26/25 08:53 Dose: 50 mg Trazodone HCl (Trazodone Hcl 50 Mg Tablet) 50 mg PO BEDTIME [facility] Last Admin: 07/26/25 20:53 Dose: 50 mg Allergies Allergies Allergy/AdvReac Type Severity Reaction Status Date / Time No Known Allergies Allergy Verified 07/18/25 04:28 Assessment & Plan Assessment & Plan (1) Major depressive disorder, recurrent, unspecified: Status: Acute Code(s): F33.9 - Major depressive disorder, recurrent, unspecified (2) Posttraumatic stress disorder: Status: Acute Code(s): F43.10 - Post-traumatic stress disorder, unspecified (3) HTN (hypertension): Status: Acute Code(s): I10 - Essential (primary) hypertension (4) Alcohol use disorder: Status: Acute Code(s): F10.90 - Alcohol use, unspecified, uncomplicated (5) Cocaine use disorder: Status: Acute Code(s): F14.10 - Cocaine abuse, uncomplicated Plan Pt is a 70 y/o Guinean bilingual but , Gambian speaking, male with h/o depression with psychotic feature, PTSD, polysubstance use and ETOH use d/o who is previously known to the CARE Team via one previous assessment and inpatient admission. pt was assessed in the ED for a similar presentation and discharged with outpatient resources. However, pt returned to the ED via ambulance with a complaint of alcohol intoxication and wanting to . He also reported AH. Pt states that he was not able to pick up attendant his medications today either. Pt was discharged from [facility] on 07/16. Formulation/clinical reasoning: Homeless, limited income ($380/monthly), relapse on substance use and not taking medication after discharge. Relapse on mental health, increased anxiety, depresion and hearing voices and having SI, want to . Limited community support, no current OP psychiatric services. Given above information, patient would benefit in restrictive environment for safety, re-start on medication, and refer patient to OP psychiatric services. 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 Hospital course: 07/20/25: Current passive SI, no plan/intent. Feeling safe here on the unit. re-start all home meds. Reviewed meds list and PRNs available for anxiety and voices/agitation. Patient states that medication was helpful. 07/21: Mood has improved. Denies SI. Continue current tx plan 07/22:Active on unit. social with peers. attending groups. Patient reports feeling much better ; denies SI/HI/VH/AH. Observed listening to music on unit headphones and reading Bible. Patient stated, when I'm taking the medications the voices go away . He reports sleeping well last night. continue tx plan. 07/23/25: Patient reports no issues with sleep or appetite. Report no anxiety or depression. Denies safety concerns or voices. Medication compliant, denies side effects. However, report constipation. No BM x3 days. Request Mag citrate. ordered with pending effects. 07/24/25: Continue current tx plan. Will d/c Sunday at 11:30, niece will pick him up. 07/25/25: Patient is visible, coloring, happy, bright affect, denies safety concerns, denies hallucinations stated that medication is working no more voices . Patient said he is living tomorrow to the residential in [facility]. He is ready for tomorrow discharge. Per nursing, patient slept for 8 hours, no behavior issues, compliant with medications. Side effects. Continue with current treatment plan. 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 He is so happy that he he has been taking good care of by staff on the unit. Reported that he has medication twice a day which is very helpful for the voices. Denies hallucinations or safety concerns. Reported that he will pick up attendant sure that he take medication from pharmacy upon discharge and make sure that he will take it. He said he is going [facility] for the residential. Patient slept well, denies side effects. No issues. Ready for discharge. Continued with current treatment plan. It will be benefit for patient to get the medication feel at [facility] pharmacy. Patient on 15 minute checks for safety. Admitted to M3. CV. Posible to be discharged to [facility] On Sunday. Patient educated on: diagnosis, medication risk/benefits, substance abuse and therapeutic strategies Informed Consent: understands Reason for continued inpatient stay Substantial Risk for: med/psych decompensation Time Spent With Patient Time: Total time managing care of this patient today ____ minutes.
[2025-07-27 08:00] VITALS: BP 132/84; PULSE 88; RESP 16; TEMP 36.3; O2SAT 97
[2025-07-27 08:31] VITALS: BP 132/84
[2025-07-27] MEDS: Nicotine 14 MG PATCH.TD24 TRANSDERMA (08:31)
[2025-07-27] MEDS: Lidocaine 4 % Patch ADH..PATCH 1 PATCH TRANSDERMA (08:32)
--- NOTE | 2025-07-27 09:27 | PM.PSYDC ---
DS: Providers Provider Date of admission: 07/20/25 14:08 Date of discharge: 07/27/25 Primary care physician: Em Physician Attending physician on admission: Dora Lombardi Attending physician on discharge: Dora Lombardi DS: Diagnosis Discharge Diagnosis (1) Major depressive disorder, recurrent, unspecified: Status: Acute (2) Posttraumatic stress disorder: Status: Acute (3) HTN (hypertension): Status: Acute (4) Alcohol use disorder: Status: Acute (5) Cocaine use disorder: Status: Acute DS: Medications Discharge Medications Home Medications: Home Medications ?Medication ?Instructions ?Recorded ?Confirmed amlodipine 5 mg tablet 5 mg PO DAILY 07/18/25 08/04/25 olanzapine 5 mg tablet 5 mg PO BID PRN agitation 08/04/25 08/04/25 Previous Rx's ?Medication ?Instructions ?Recorded acetaminophen 325 mg tablet 650 mg (2 x 325 mg) PO Q6H PRN 06/30/25 Headache/Pain, Scale 1-10 #0 tabs atorvastatin 80 mg tablet 80 mg PO DAILY 30 days #30 tabs 07/27/25 benztropine 1 mg tablet 1 mg PO BEDTIME 30 days #30 tabs 07/27/25 diphenhydramine HCl 25 mg capsule 50 mg (2 x 25 mg) PO BEDTIME PRN 07/27/25 insomnia 30 days #60 caps docusate sodium 100 mg capsule 100 mg PO BID PRN constipation 30 07/27/25 days #60 caps lidocaine 4 % topical patch 1 patch transdermal DAILY PRN pain 07/27/25 (Lidocaine Pain Relief) 30 days #30 ea melatonin 3 mg tablet 6 mg (2 x 3 mg) PO BEDTIME PRN 07/27/25 Insomnia 30 days #60 tabs nicotine 14 mg/24 hr daily 14 mg transdermal DAILY 28 days 07/27/25 transdermal patch #28 ea olanzapine 7.5 mg tablet 7.5 mg PO BEDTIME 30 days #30 tabs 07/27/25 sennosides 8.6 mg tablet (Senna 17.2 mg (2 x 8.6 mg) PO DAILY 30 07/27/25 Lax) days #60 tabs sertraline 50 mg tablet 50 mg PO DAILY 30 days #30 tabs 07/27/25 trazodone 50 mg tablet 50 mg PO BEDTIME 30 days #30 tabs 07/27/25 Mental Status Exam Mental Status Exam Narrative: Appearance: Casually dressed. Grooming/hygiene wnl. Good eye contact Speech: Fluent and wnl in regard to volume, tone, prosody Motor activity: Calm. No tics, tremors or dyskinesias. Steady gait Mood: good Affect: appropriate, reactive Thought process: goal directed and without evidence of formal thought disorder Thought content: Denies SI/violent ideation Perception: Denies current AH/VH and does not appear to respond to internal stimuli Alert/oriented in all spheres Insight: fair- improved Judgment: fair- improved Data Data Completed and Pending Completed studies during hospitalization [Text1]: 07/20/25 Unknown Urine clean catch - Clean Catch Midstream Urine Culture - Final No growth. DS: Summary Hospital Course Hospital Course: Pt is a 70 y/o Scottish bilingual but , Malaysian speaking, male with h/o depression with psychotic feature, PTSD, polysubstance use and ETOH use d/o who was BIBA to the [facility] ED on 07/18/25 due to c/o ETOH intoxication, SI and AH. Pt was recently admitted to [facility] M3 from 06/18-06/30/25 for a similar presentation. He was then hospitalized at [facility] until 07/16/25. He returned to the [facility] ED on 07/17/25 endorsing SI in the setting of homelessness and was discharged with outpatient resources. Per psychiatric admission note from covering provider- Pt reported that the reason for this admission was because I am homeless. I am on the street. I am depressed and I have voices . Report voices telling him you're shit . Kill yourself but I am bahai I cannot do it . He reported that he last used about $20-30 worth of cocaine last Sunday. Alcohol: no more than 3 cans last drink was Sunday as well. Report he used to drink up to 20 cans /daily but he has been cutting down a lot more. Smoke up to 1PPD. Using MJ but not daily. Reports he uses substances to forget my problems . He endorses SI now but denies SIB/HI/AVH. Denies suicide attempts. pain on left shoulder a 5/10. Poor sleep without medications, report appetite is good. Mood is anxious, depressed, and sometimes feeling like he has panic attack. Patient reports that he has not able to diamond picker prescriptions and has not taken meds since discharge but report with meds he sleeps better and the voices is more quiet down. Goal directed: he would like to quit using drugs and alcohol. Initial Assessment and plan: Homeless, limited income ($380/monthly), relapse on substance use and not taking medication after discharge. Relapse on mental health, increased anxiety, depression and hearing voices and having SI, want to . Limited community support, no current OP psychiatric services. Given above information, patient would benefit in restrictive environment for safety, re-start on medication, and refer patient to OP psychiatric services. 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 Admitted to [facility] M3 on a CV. 15 min safety checks Re-start all home meds. Reviewed meds list and PRNs available for anxiety and voices/agitation. Patient states that medication was helpful. Work with treatment team to do collateral for CSS/CCS if possible for aftercare. 07/21: Mood has improved. Denies SI. Continue current tx plan 07/22:Active on unit. social with peers. attending groups. Patient reports feeling much better ; denies SI/HI/VH/AH. Observed listening to music on unit headphones and reading Bible. Patient stated, when I'm taking the medications the voices go away . He reports sleeping well last night. continue tx plan. 07/23/25: Patient reports no issues with sleep or appetite. Report no anxiety or depression. Denies safety concerns or voices. 07/24/25: Discussed plan to d/c Sunday at 11:30, niece will pick him up. He has been accepted to [facility] and referred to the [facility] 07/25/25: Patient is visible, coloring, happy, bright affect, denies safety concerns, denies hallucinations stated that medication is working no more voices . Patient discussed plans to go to the correction. Per nursing, patient slept for 8 hours, no behavior issues, compliant with medications. 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 He is so happy that he he has been taking good care of by staff on the unit. Reported that he has medication twice a day which is very helpful for the voices. Denies hallucinations or safety concerns. Reported that he will make sure to diamond picker his meds from the pharmacy and take them. 07/27/25: Pt reports feeling stable, safe and denies SI/violent ideation, AHVH. He plans to go to the [facility] correction. He expressed an understanding of the potential risks associated with recurrent substance use. Status at Discharge Functional status at discharge: independent ambulation Overall status at discharge: patient is back to baseline Time Spent with Patient Time attestation: Total time managing care of this patient today ____ minutes. Time spent: Less than 30 minutes Discharge Plan Discharge Anticipated Discharge Date/Time: 07/27/25 09:03 Patient Disposition: Home, Self-Care Discharge Diagnosis: PTSD MDD, recurrent, partial remission Alcohol use disorder Cocaine use disorder Referrals: [facility] psychiatry and therapy services [Other] - 1 Week Referral Note: walk in hours are Sunday-Sunday 8am-8pm and weekend hours Sunday and Sunday 9am-5pm Aron Rahman MD [Physician, Integrative Medicine] - 1 Week Referral Note: 07-27-25 Your primary care has been notified of your discharge and will be making contact with you within 48 hours to tell you the date and time of your follow up appt. Discharge Medications: New diphenhydramine HCl 25 mg Capsule 50 mg PO BEDTIME PRN (Reason: insomnia) 30 Days Qty: 60 0RF nicotine 14 mg/24 hr Patch 24 Hour 14 mg transdermal DAILY 28 Days Qty: 28 0RF benztropine 1 mg Tablet 1 mg PO BEDTIME 30 Days Qty: 30 0RF olanzapine 7.5 mg Tablet 7.5 mg PO BEDTIME 30 Days Qty: 30 0RF sertraline 50 mg Tablet 50 mg PO DAILY 30 Days Qty: 30 0RF trazodone 50 mg Tablet 50 mg PO BEDTIME 30 Days Qty: 30 0RF docusate sodium 100 mg Capsule 100 mg PO BID PRN (Reason: constipation) 30 Days Qty: 60 0RF sennosides [Senna Lax] 8.6 mg Tablet 17.2 mg PO DAILY 30 Days Qty: 60 0RF melatonin 3 mg Tablet 6 mg PO BEDTIME PRN (Reason: Insomnia) 30 Days Qty: 60 0RF lidocaine [Lidocaine Pain Relief] 4 % Adhesive Patch,Medicated 1 patch transdermal DAILY PRN (Reason: pain) 30 Days Qty: 30 0RF Protocol: Apply to: Apply to: left shoulder atorvastatin 80 mg Tablet 80 mg PO DAILY 30 Days Qty: 30 0RF Continued acetaminophen 325 mg Tablet 650 mg PO Q6H PRN (Reason: Headache/Pain, Scale 1-10) Qty: 0 0RF amlodipine 5 mg Tablet 5 mg PO DAILY Discontinued nicotine 14 mg/24 hr Patch 24 Hour 14 mg transdermal DAILY 28 Days Qty: 28 0RF trazodone 50 mg tablet 50 mg PO BEDTIME Rx Instructions: Take 1-2 tabs po qhs prn for insomnia atorvastatin 80 mg Tablet 80 mg PO DAILY diphenhydramine HCl 50 mg Capsule 50 mg PO BEDTIME melatonin 3 mg Tablet 6 mg PO BEDTIME PRN (Reason: Insomnia) olanzapine 7.5 mg Tablet 7.5 mg PO BEDTIME benztropine 1 mg Tablet 1 mg PO BEDTIME sertraline 50 mg Tablet 50 mg PO DAILY No Action olanzapine 5 mg tablet 5 mg PO BID PRN (Reason: agitation) Discharge Orders: Discharge Order (Routine); Ordered 07/27/25 Ordered By: Dora Lombardi Diet: Regular diet Activity on Discharge: As tolerated Stand Alone Forms: Patient Portal Discharge page, Community Support Print Language: Malaysian Care Plan Goals: Maintain safe behaviors Practice coping skills Take medications as prescribed Continue to pursue sobriety Maintain regular follow-ups with your outpatient providers Health Concerns: Mood stability and behaviors Substance use Plan of Treatment: Follow up with your psychiatric provider, PCP and other outpatient providers Take your medication as prescribed Assessment: Risk assessment at the time of discharge: Patient was interviewed on the day of discharge and found to be fully oriented, without any SI or violent ideation. Pt has improved insight and judgment and plans to continue treatment Pt is not at high risk of harm to self or others and has a safety plan that includes presenting to the closest ER or calling 911 if feeling unsafe. Pt has been observed closely by unit staff and has not engaged in any behaviors that suggest dangerous to self or others and has demonstrated appropriate bheaviors and impulse control. Discharge Date/Time: 07/27/25 11:25
== END 2025-07-27 11:25 | disposition home or self-care (01) | DRG 885 ==
LOC: HO.ED 07-20 07:52 → HO.PADLT16 07-20 15:33
PROVIDERS: Admitting Provider Psychiatry & Neurology Psychiatry; Emergency Provider Emergency Medicine; Visit Provider Psychiatry & Neurology Psychiatry
DX: F32.3 Major depressive disorder, single episode, severe with psychotic features (principal); R45.851 Suicidal ideations; F17.210 Nicotine dependence, cigarettes, uncomplicated; I10 Essential (primary) hypertension; E78.5 Hyperlipidemia, unspecified; F10.90 Alcohol use, unspecified, uncomplicated; F14.10 Cocaine abuse, uncomplicated; F43.10 Post-traumatic stress disorder, unspecified; Y90.6 Blood alcohol level of 120-199 mg/100 ml; Z71.6 Tobacco abuse counseling; Z79.899 Other long term (current) drug therapy
CPT/HCPCS: 36415; 80048; 80053; 80061; 80076; 80179; 80307; 81001; 83036; 83735; 85007; 85025; 85027; 87086; 93005; 99285; S9485

== ENCOUNTER → 2025-07-20 12:33 | Outpatient (BNV) | payer MEDICARE, SELFPAY | PROVIDERS: Emergency Provider Emergency Medicine; Visit Provider Internal Medicine Cardiovascular Disease | DX: R00.1 Bradycardia, unspecified (principal) | CPT/HCPCS: 93010 ==

== ENCOUNTER → 2025-07-20 14:08 | Outpatient (BNV) | payer MEDICARE, SELFPAY | PROVIDERS: Admitting Provider Psychiatry & Neurology Psychiatry; Emergency Provider Emergency Medicine; Visit Provider Psychiatry & Neurology Psychiatry | DX: F33.2 Major depressive disorder, recurrent severe without psychotic features (principal); F14.10 Cocaine abuse, uncomplicated; F10.90 Alcohol use, unspecified, uncomplicated; F43.11 Post-traumatic stress disorder, acute; I10 Essential (primary) hypertension | CPT/HCPCS: 90792; 99231; 99232; 99499 ==

== ENCOUNTER → 2025-07-20 14:08 | Outpatient (BNV) | payer MEDICARE, SELFPAY | PROVIDERS: Admitting Provider Psychiatry & Neurology Psychiatry; Emergency Provider Emergency Medicine; Visit Provider Nurse Practitioner Family | DX: I10 Essential (primary) hypertension (principal) | CPT/HCPCS: 99221 ==

== ENCOUNTER 2025-07-29 18:49 | Emergency (ER) | payer MEDICARE, SELFPAY ==
[2025-07-29 19:09] VITALS: BP 123/72; PULSE 100; RESP 16; O2SAT 100; BMI 24.1
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
[2025-07-29 19:45] VITALS: BP 108/63; PULSE 87; RESP 20; TEMP 36.9; O2SAT 98
[2025-07-29 20:06] LABS: MANUAL DIFF FLAG NO
[2025-07-29 20:09] LABS: Appearance Urine Clear; Glucose Urine UA Negative (Negative); PH 5.0 (5.0-9.0); Specific Gravity - Urine 1.015 (1.005-1.025); UMIC TRIGGER UACC YES
[2025-07-29 20:14] LABS: UACC Culture Trigger YES
[2025-07-29 20:14] LABS: Hematocrit 35.5 % (42.0-52.0); Hemoglobin 12.2 g/dl (14.0-18.0); Imm Gran Abs Auto 0.01 X10*3/uL (0.00-0.03); Imm Gran Pct Auto 0.2 % (0.0-0.4); Lymphocytes Absolute Auto 1.8 X10*3/uL (1.2-4.9); Mean Corpuscular HGB Conc 34.4 g/dl (31.0-36.0); Mean Corpuscular Hemoglobin 30.7 pg (27.0-33.0); Mean Corpuscular Volume 89.4 fL (80.0-98.0); NRBC Abs Auto 0.000 X10*3/uL (0.0-0.012); NRBC Pct Auto 0.0 /100WBC (0.0-0.2); Platelet Count 206 X10*3/uL (160-400); Red Blood Count 3.97 X10*6/uL (4.60-5.80); White Blood Count 6.0 X10*3/uL (4.8-10.8)
[2025-07-29 20:23] LABS: Cannabinoid Screen Urine POSITIVE (Not Detect)
[2025-07-29 20:25] LABS: Alanine Aminotransferase 66 U/L (0-40); Albumin Level 4.1 g/dL (3.5-5.0); Alkaline Phosphatase 81 U/L (39-117); Anion Gap 16 (12-20); Aspartate Amino Transferase 64 U/L (5-37); Blood Urea Nitrogen 32 mg/dL (9-16); Calcium 8.6 mg/dL (8.4-10.2); Carbon Dioxide 21 mmol/L (22-29); Chloride 105 mmol/L (96-108); Creatinine Clr Calc Pharmacy 45.9; Estimated Glomerular Filt Rate 59; Potassium 4.6 mmol/L (3.3-5.1); Sodium 137 mmol/L (135-145); Total Protein 7.2 g/dL (6.5-8.0)
[2025-07-29 20:28] LABS: Salicylate < 5.0 mg/dL (15-30)
--- NOTE | 2025-07-29 21:26 | ED.GENADULT ---
HPI - General Adult General Chief complaint: Psychiatric Symptoms Stated complaint: Si, auditory hallucinations Time Seen by Provider: 07/29/25 20:25 Source: patient Limitations: no limitations History of Present Illness ED Provider: Delmis Arias PA-C HPI narrative: 70-year-old male with a history of alcohol use disorder, cocaine use disorder, tobacco abuse, depression, presents with suicidal ideation. Patient admits to feeling worsening anxiety, he admits he has a plan to ?jump off a high height?. Patient admits to using cocaine and alcohol tonight. He also admits to being nonadherent with the his medications, he has been off his meds for 3 days. Patient also making comments to the effect of ?I just want to ?. Related Data Home Medications ?Medication ?Instructions ?Recorded ?Confirmed amlodipine 5 mg tablet 5 mg PO DAILY 07/18/25 07/29/25 Previous Rx's ?Medication ?Instructions ?Recorded acetaminophen 325 mg tablet 650 mg (2 x 325 mg) PO Q6H PRN 06/30/25 Headache/Pain, Scale 1-10 #0 tabs atorvastatin 80 mg tablet 80 mg PO DAILY 30 days #30 tabs 07/27/25 benztropine 1 mg tablet 1 mg PO BEDTIME 30 days #30 tabs 07/27/25 diphenhydramine HCl 25 mg capsule 50 mg (2 x 25 mg) PO BEDTIME PRN 07/27/25 insomnia 30 days #60 caps docusate sodium 100 mg capsule 100 mg PO BID PRN constipation 30 07/27/25 days #60 caps lidocaine 4 % topical patch 1 patch transdermal DAILY PRN pain 07/27/25 (Lidocaine Pain Relief) 30 days #30 ea melatonin 3 mg tablet 6 mg (2 x 3 mg) PO BEDTIME PRN 07/27/25 Insomnia 30 days #60 tabs nicotine 14 mg/24 hr daily 14 mg transdermal DAILY 28 days 07/27/25 transdermal patch #28 ea olanzapine 5 mg tablet 5 mg PO DAILY PRN agitation 30 07/27/25 days #30 tabs olanzapine 7.5 mg tablet 7.5 mg PO BEDTIME 30 days #30 tabs 07/27/25 sennosides 8.6 mg tablet (Senna 17.2 mg (2 x 8.6 mg) PO DAILY 30 07/27/25 Lax) days #60 tabs sertraline 50 mg tablet 50 mg PO DAILY 30 days #30 tabs 07/27/25 trazodone 50 mg tablet 50 mg PO BEDTIME 30 days #30 tabs 07/27/25 Allergies Allergy/AdvReac Type Severity Reaction Status Date / Time No Known Allergies Allergy Verified 07/29/25 19:13 Review of Systems Review of Systems: Yes all other systems are reviewed and are negative Constitutional: Constitutional: Denies fatigue and Denies fever(s) Cardiovascular: Cardiovascular: Denies chest pain and Denies dyspnea Respiratory: Respiratory: Denies dyspnea Gastrointestinal: Gastrointestinal: Denies abdominal pain Endocrine: Endocrine: Denies fatigue [facility] Past Medical History Attestation statement: The following information was validated with the patient. Medical History Major depressive disorder, recurrent, severe 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 Social History Social History Household Members: None Housing: Homeless Housing Other:: street since January Do you presently have visiting nurse or other home services: No Alcohol intake: current Alcohol intake frequency: a few times a week Alcohol type: beer Patient Tobacco Use Status: Current everyday Tobacco user Tobacco use type: Cigarette Cigarette Packs Per Day: 1 Cigarettes Per Day: 20.0 Years Smoked: 60 e-Cigarette/Vaping Use: Never Used Second Hand Smoke Exposure: No Use of substances other than those prescribed or required for medical reasons: Yes Substance Use Type: Crack/Cocaine Substance Use Frequency: Occasionally Substance Use Frequency Other:: 2-3 hours ago Last Used Substance: Hours (ago) Advance Directives: No Advance Directives Information Provided: Yes Do you have a plan to hurt others: No Plan service: No Sexual orientation: Straight/Heterosexual Physical Exam ED Vital Signs: Vital Signs - 24 hr 07/30/25 06:36 07/30/25 09:26 Temperature 98.2 F 98.2 F Pulse Rate 80 80 Respiratory Rate 17 17 Blood Pressure 149/72 H 149/72 H Pulse Oximetry 98 98 Oxygen Delivery Method Room Air BMI result Body Mass Index 24.1 Const Other: Alert Orientation/consciousness: patient oriented x3 Resp Effort & Inspection: normal respiratory effort Cardio Other: Normal peripheral perfusion Skin Other: Warm dry no rash Neuro General: patient oriented x3, gait normal, no focal motor deficits and CN's II-XI intact bilaterally Psych Other: Cooperative Course Reevaluation(s) Reevaluation #1: Speaking with Lien from the care team, the patient will be held until the morning for April psych and mood stabilization medication adjustment are the current recommendations, the patient is agitated, hostile belligerent having auditory hallucinations and SI, stating ?I just want to ?. Time: 21:26 Reevaluation #2: Time: 01:10 Date: 07/30/25 Provider: DANIEL Leyva Patient in physician observation for psychiatric evaluation.? No acute events reported overnight. No current complaints. VS stable.? Patient is in bed search status/pending CARE team evaluation. Will continue to monitor. Time: : Reevaluation #3: Time: 06:20 Date: 07/30/25 Provider: John Paul Gandara MD Patient in physician observation for psychiatric evaluation.? No acute events reported overnight. No current complaints. VS stable.? Patient is in bed search status/pending CARE team evaluation. Will continue to monitor. Additional Reevaluation(s): July 30 2025 09:19 AM patient was seen by crisis team was cleared for discharge at this time we will end of the psychiatric observation Dr Gandara Medications Administered Discontinued Medications Generic Name Dose Route Start Last Admin Trade Name Freq PRN Reason Stop Dose Admin Amlodipine Besylate 5 mg 07/30/25 09:00 07/30/25 08:08 Amlodipine Besylate 5 Mg Tablet PO 5 mg DAILY AIMEE Administration Protocol Atorvastatin Calcium 80 mg 07/30/25 09:00 07/30/25 08:08 Atorvastatin Calcium 80 Mg Tablet PO 80 mg DAILY AIMEE Administration Magnesium Citrate 300 ml 07/30/25 08:09 07/30/25 09:22 Magnesium Citrate 300 Ml Solution PO 07/30/25 08:10 300 ml ONCE ONE Administration Nicotine 14 mg 07/30/25 09:00 07/30/25 08:08 Nicotine 14 Mg Patch.Td24 TRANSDERMA Not Given DAILY AIMEE Olanzapine 10 mg 07/29/25 21:27 07/29/25 21:39 Olanzapine 10 Mg Tablet PO 07/29/25 21:28 10 mg ONCE ONE Administration Senna 17.2 mg 07/30/25 09:00 07/30/25 08:08 Sennosides 8.6 Mg Tablet PO 17.2 mg DAILY AIMEE Administration Sertraline HCl 50 mg 07/30/25 09:00 07/30/25 08:08 Sertraline Hcl 50 Mg Tablet PO 50 mg DAILY AIMEE Administration Trazodone HCl 50 mg 07/29/25 21:27 07/29/25 21:39 Trazodone Hcl 50 Mg Tablet PO 07/29/25 21:28 50 mg ONCE ONE Administration Medical Decision Making Medical Decision Making [facility] Narrative: 70-year-old male with a history of alcohol use disorder, cocaine use disorder, tobacco abuse, depression, presents with suicidal ideation. Patient admits to feeling worsening anxiety, he admits he has a plan to ?jump off a high height?. Patient admits to using cocaine and alcohol tonight. He also admits to being nonadherent with the his medications, he has been off his meds for 3 days. Patient also making comments to the effect of ?I just want to ?. Problem: Polysubstance abuse, psychiatric illness History: Per patient I have considered the following differential diagnoses: SI, HI, decompensated psychiatric illness, drug/alcohol intoxication Plan: The patient has been referred to the care team, I foresee him being a likely bed search. Screening labs including drug screen and ethanol are in process. I am ordering the patient's evening medications. CIWA scale in place, unclear if he will withdraw I have independently reviewed the following tests: Labs: No leukocytosis, not anemic, no electrolyte abnormality, U tox positive for cocaine and marijuana, ethanol 123 Differential Diagnosis Differential Diagnoses: The differential diagnosis associated with the presentation includes Admission/Observation Consideration of admission/observation: Escalation of care including admission/observation considered May require inpatient level of care Consult Healthcare Provider Management of the patient was discussed with: Rn Licensed Practical [facility] Behavior[facility] Provider Care team and psychiatric consult Lab Data [facility] Lab Attestation statement: I reviewed the patient's lab results. 07/29/25 19:41 07/29/25 19:41 Labs: Lab Results 07/29/25 07/29/25 Range/Units 19:41 19:44 WBC 6.0 (4.8-10.8) X10*3/uL RBC 3.97 L (4.60-5.80) X10*6/uL Hgb 12.2 L (14.0-18.0) g/dl Hct 35.5 L (42.0-52.0) % MCV 89.4 (80.0-98.0) fL MCH 30.7 (27.0-33.0) pg MCHC 34.4 (31.0-36.0) g/dl RDW 12.0 (11.0-16.0) % Plt Count 206 (160-400) X10*3/uL MPV 9.1 L (9.4-12.4) fL Immature Gran % (Auto) 0.2 (0.0-0.4) % Neut % (Auto) 55.4 (45-73) % Lymph % (Auto) 30.8 (20-40) % [place] % (Auto) 11.9 H (2-11) % Eos % (Auto) 1.2 (0-4) % Baso % (Auto) 0.5 (0-2) % Lymph # (Auto) 1.8 (1.2-4.9) X10*3/uL [place] # (Auto) 0.7 (0.1-1.2) X10*3/uL Eos # (Auto) 0.1 (0.0-0.4) X10*3/uL Baso # (Auto) 0.0 (0.0-0.2) X10*3/uL Abs Immat Gran (auto) 0.01 (0.00-0.03) X10*3/uL Absolute Neuts (auto) 3.3 (2.0-8.3) x10*3/uL Absolute Nucleated RBC 0.000 (0.0-0.012) X10*3/uL Nucleated RBC % (auto) 0.0 (0.0-0.2) /100WBC Sodium 137 (135-145) mmol/L Potassium 4.6 D (3.3-5.1) mmol/L Chloride 105 (96-108) mmol/L Carbon Dioxide 21 L (22-29) mmol/L Anion Gap 16 (12-20) BUN 32 H (9-16) mg/dL Creatinine 1.22 (0.5-1.4) mg/dL Estim Creat Clear Calc 45.9 Estimated GFR 59 Random Glucose 80 (60-115) mg/dL Calcium 8.6 (8.4-10.2) mg/dL Total Bilirubin 0.2 (0.0-1.0) mg/dL AST 64 H (5-37) U/L ALT 66 H (0-40) U/L Alkaline Phosphatase 81 (39-117) U/L Total Protein 7.2 (6.5-8.0) g/dL Albumin 4.1 (3.5-5.0) g/dL Urine Color Yellow Urine Appearance Clear Urine pH 5.0 (5.0-9.0) Ur Specific [place] 1.015 (1.005-1.025) Urine Protein Negative (Neg-Trace) mg/dL Urine Glucose (UA) Negative (Negative) mg/dL Urine Ketones Negative (Negative) mg/dL Urine Blood Negative (Negative) Urine Nitrite Negative (Negative) Ur Leukocyte Esterase Trace H (Negative) Urine RBC 0-2 (0-2) /HPF Urine WBC 6-10 H (0-5) /HPF Ur Squamous Epith Cells 0-2 (0-2) /HPF Urine Bacteria None Seen (None Seen) Hyaline Casts 0-2 (0-2) /LPF Salicylates < 5.0 L (15-30) mg/dL Urine Opiates Screen Not Detected (Not Detect) Ur Buprenorphine Scrn Not Detected (Not Detect) ng/mL Ur Oxycodone Screen Not Detected (Not Detect) ng/mL Urine Methadone Screen Not Detected (Not Detect) ng/mL Urine Fentanyl Screen Not Detected (Not Detect) Ur Barbiturates Screen Not Detected (Not Detect) Ur Phencyclidine Scrn Not Detected (Not Detect) Ur Amphetamines Screen Not Detected (Not Detect) U Benzodiazepines Scrn Not Detected (Not Detect) Urine Cocaine Screen POSITIVE H (Not Detect) U Marijuana (THC) Screen POSITIVE H (Not Detect) Ethyl Alcohol 123 mg/dL Discharge Plan Discharge Clinical Impression: Suicidal ideation, Alcohol use, Auditory hallucinations, Cocaine use disorder Patient Disposition: Home, Self-Care Instructions: Depression (ED) Prescriptions: No Action acetaminophen 325 mg Tablet 650 mg PO Q6H PRN (Reason: Headache/Pain, Scale 1-10) Qty: 0 0RF amlodipine 5 mg Tablet 5 mg PO DAILY diphenhydramine HCl 25 mg Capsule 50 mg PO BEDTIME PRN (Reason: insomnia) 30 Days Qty: 60 0RF nicotine 14 mg/24 hr Patch 24 Hour 14 mg transdermal DAILY 28 Days Qty: 28 0RF benztropine 1 mg Tablet 1 mg PO BEDTIME 30 Days Qty: 30 0RF olanzapine 7.5 mg Tablet 7.5 mg PO BEDTIME 30 Days Qty: 30 0RF olanzapine 5 mg Tablet 5 mg PO DAILY PRN (Reason: agitation) 30 Days Qty: 30 0RF sertraline 50 mg Tablet 50 mg PO DAILY 30 Days Qty: 30 0RF trazodone 50 mg Tablet 50 mg PO BEDTIME 30 Days Qty: 30 0RF docusate sodium 100 mg Capsule 100 mg PO BID PRN (Reason: constipation) 30 Days Qty: 60 0RF sennosides [Senna Lax] 8.6 mg Tablet 17.2 mg PO DAILY 30 Days Qty: 60 0RF melatonin 3 mg Tablet 6 mg PO BEDTIME PRN (Reason: Insomnia) 30 Days Qty: 60 0RF lidocaine [Lidocaine Pain Relief] 4 % Adhesive Patch,Medicated 1 patch transdermal DAILY PRN (Reason: pain) 30 Days Qty: 30 0RF Protocol: Apply to: Apply to: left shoulder atorvastatin 80 mg Tablet 80 mg PO DAILY 30 Days Qty: 30 0RF Referrals: Aron Rahman MD [Primary Care Provider, [facility]] Interventions: [place]-Suicide Risk Severity Scale Last Done: 07/29/25 19:27 ED Discharge Assessment Last Done: 07/30/25 09:26 Discharge Date/Time: 07/30/25 09:45 Print Language: [place]i
--- NOTE | 2025-07-29 23:28 | PC.NURSE ---
Late entry for 21:39: Medicated per MAR. Mouth checks completed.
[2025-07-30 06:36] VITALS: BP 149/72; PULSE 80; RESP 17; TEMP 36.8; O2SAT 98
--- NOTE | 2025-07-30 07:38 | PHA.MEDREC ---
Pharmacy Consult ? Medication Reconciliation Pharmacy has completed the medication reconciliation. Reviewed med rec done by nursing, matches discharge packet from 07/27/2025.
--- NOTE | 2025-07-30 07:49 | PC.NURSE ---
Assumed care, report received. Pt is currently sleeping, he is brought breakfast.
--- NOTE | 2025-07-30 09:22 | MHC.CARE ---
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 ED provider in agreement.
[2025-07-30 09:26] VITALS: BP 149/72; PULSE 80; RESP 17; TEMP 36.8; O2SAT 98
== END 2025-07-30 09:45 | disposition home or self-care (01) ==
PROVIDERS: Emergency Provider Emergency Medicine; PCP Internal Medicine
DX: R45.851 Suicidal ideations (principal); F33.3 Major depressive disorder, recurrent, severe with psychotic symptoms; F10.90 Alcohol use, unspecified, uncomplicated; F14.90 Cocaine use, unspecified, uncomplicated; F41.9 Anxiety disorder, unspecified; F17.210 Nicotine dependence, cigarettes, uncomplicated; Z91.148 Patient's other noncompliance with medication regimen for other reason
CPT/HCPCS: 36415; 80053; 80179; 80307; 81001; 85025; 87086; 99285; S9485

== ENCOUNTER 2025-08-04 16:55 | Inpatient (IN) | payer MEDICARE, SELFPAY ==
[2025-08-04 17:13] VITALS: BMI 26.4
--- NOTE | 2025-08-04 17:13 | ED.PSYCH ---
HPI - Psych General Chief Complaint: Psychiatric Symptoms Stated Complaint: crisis Time Seen by Provider: 08/04/25 17:12 Source: patient Mode of arrival: ambulatory Limitations: no limitations History of Present Illness ED Provider: DR. Vela HPI Narrative: this is a 70-year-old male PMHx depression with psychotic feature, PTSD, polysubstance use was ETOH use, prior history of inpatient psych admission For a depression. Patient admit that he is homeless now and feel depressed with suicidal ideation that he would jump in front of a train, patient was seen yesterday at [facility] for depression and SI patient was discharged to the street today decided to come to [facility] for further evaluation of depression and SI, patient admit to drinking some beer earlier today. No headache, no neck pain, no CP, no SOB, no abdominal pain, no back pain, chronic left eye redness await for his eye doctor for surgery to the left eye, no blurry vision, no double vision. Related Data Home Medications ?Medication ?Instructions ?Recorded ?Confirmed amlodipine 5 mg tablet 5 mg PO DAILY 07/18/25 08/04/25 olanzapine 5 mg tablet 5 mg PO BID PRN agitation 08/04/25 08/04/25 Previous Rx's ?Medication ?Instructions ?Recorded acetaminophen 325 mg tablet 650 mg (2 x 325 mg) PO Q6H PRN 06/30/25 Headache/Pain, Scale 1-10 #0 tabs atorvastatin 80 mg tablet 80 mg PO DAILY 30 days #30 tabs 07/27/25 benztropine 1 mg tablet 1 mg PO BEDTIME 30 days #30 tabs 07/27/25 diphenhydramine HCl 25 mg capsule 50 mg (2 x 25 mg) PO BEDTIME PRN 07/27/25 insomnia 30 days #60 caps docusate sodium 100 mg capsule 100 mg PO BID PRN constipation 30 07/27/25 days #60 caps lidocaine 4 % topical patch 1 patch transdermal DAILY PRN pain 07/27/25 (Lidocaine Pain Relief) 30 days #30 ea melatonin 3 mg tablet 6 mg (2 x 3 mg) PO BEDTIME PRN 07/27/25 Insomnia 30 days #60 tabs nicotine 14 mg/24 hr daily 14 mg transdermal DAILY 28 days 07/27/25 transdermal patch #28 ea olanzapine 7.5 mg tablet 7.5 mg PO BEDTIME 30 days #30 tabs 07/27/25 sennosides 8.6 mg tablet (Senna 17.2 mg (2 x 8.6 mg) PO DAILY 30 07/27/25 Lax) days #60 tabs sertraline 50 mg tablet 50 mg PO DAILY 30 days #30 tabs 07/27/25 trazodone 50 mg tablet 50 mg PO BEDTIME 30 days #30 tabs 07/27/25 Allergies Allergy/AdvReac Type Severity Reaction Status Date / Time No Known Allergies Allergy Verified 08/04/25 17:18 Review of Systems Review of Systems: All other systems are reviewed and are negative Constitutional: Reports as per HPI and Reports no additional constitutional complaints Eyes: Reports as per HPI and Reports no additional eye complaints Reports system reviewed and no additional complaints, except as documented Cardiovascular: Reports as per HPI and Reports no additional cardiovascular complaints Respiratory: Reports as per HPI and Reports no additional respiratory complaints Gastrointestinal: Reports as per HPI and Reports no additional gastrointestinal complaints Genitourinary: Reports no additional female genitourinary complaints Musculoskeletal: Reports no additional musculoskeletal complaints Skin/Breast: Reports system reviewed and no additional complaints, except as docu Psychiatric: Reports no additional psychiatric complaints Endocrine: Reports no additional endocrine complaints Hematologic/Lymphatic: Reports no additional hematologic/lymphatic complaints Allergic/Immunologic: Reports no additional allergic/immunologic complaints Reports system reviewed and no additional complaints, except as documented and Reports Abnormal speech present [facility] Past Medical History Medical History Major depressive disorder, recurrent, severe 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 Social History Social History Household Members: None Housing: Homeless Housing Other:: street since January Do you presently have visiting nurse or other home services: No Alcohol intake: current Alcohol intake frequency: a few times a week Alcohol type: beer Patient Tobacco Use Status: Current everyday Tobacco user Tobacco use type: Cigarette Cigarette Packs Per Day: 1 Cigarettes Per Day: 20.0 Years Smoked: 60 e-Cigarette/Vaping Use: Never Used Second Hand Smoke Exposure: No Substance Use Type: Crack/Cocaine Advance Directives: No Advance Directives Information Provided: No Do you have a plan to hurt others: No Plan service: No Sexual orientation: Straight/Heterosexual Physical Exam Vital Signs: Vital Signs: Last Vital Signs Temp 98.1 F 08/06/25 13:37 Pulse 91 08/06/25 13:37 Resp 17 08/06/25 13:37 BP 135/81 08/06/25 13:37 Pulse Ox 99 08/06/25 13:37 O2 Del Method Room Air 08/06/25 13:37 BMI result Body Mass Index 26.4 Vital signs have been reviewed and appear to be correct. Blood pressure elevated. Heart rate normal. Respiratory rate normal. Temperature normal. Oxygen saturation normal. Appearance: Alert. Oriented X3. No acute distress. Head: Normal external exam. Normocephalic. Atraumatic. No Dempsey signs noted. No raccoon eyes noted Eyes: PERRLA. EOMI. Conjunctiva and sclera normal. Eyelids normal. ENT: TM's Normal. Pharynx normal. Uvula midline. Moist mucous membranes. No trismus noted. No drooling noted. No muffled voice noted. Neck: Normal inspection. Neck supple. FROM. No adenopathy. Thyroid Normal. No meningeal signs. No neck mass noted. CVS: Normal heart rate and rhythm. Heart sound normal. No murmurs noted. Pulses normal throughout. Respiratory: No respiratory distress. Painless inspiration. Breath sounds normal. No wheezes/rales/rhonchi noted. Chest nontender. No accessory muscle usage noted or decreased air movement noted. Abdomen: Soft and nontender. Bowel sounds normal in all 4 quadrants. No distention noted. No organomegaly noted. No visible injury noted. Back: No CVA tenderness. Full range of motion noted. Skin: Skin warm and dry. Normal skin color. Normal skin turgor. No rashes/lesions/lacerations noted. Extremities: No lower extremity edema. Extremities exhibit normal range of motion. Extremities nontender. Neuro: Oriented X 3. Cranial nerve exam: II-XII are grossly intact No motor deficit. No sensory deficit. Reflexes normal. Patient Orientation: Person, Place, Time and Situation, okay hygiene and grooming. Fair eye contact, attentive, no tics or tremors. Level of Consciousness: Awake, Appropriate and Alert Patient Behavior: Appropriate, Guarded, Cooperative and Anxious Mood Description: Constricted, Blunted and Apprehensive Affect Description: Constricted, Blunted and Apprehensive Patient Cognition Impaired: No Ability to Follow Directions: Excellent Speech Pattern: Clear, Appropriate and Spontaneous Speech, nonpressured, spontaneous with regular rate and rhythm, normal volume and prosody. No dysarthria. Memory Description: Intact, Immediate Intact and Short Term Intact Hallucinations: None Delusions: Not Present Thought Process: Intact Thought Content: Admit for suicidal ideation with plan to jump in front of a train. Depressive Symptoms: Not present. Judgement and Insight: Limited but adequate. Course Reevaluation(s) Reevaluation #1: 70-year-old male homeless came in for evaluation depression, medically cleared, will start physician observation now await for care team evaluation. Time: 18:00 Reevaluation #2: DR. Vela's Progress note 08/05/2025; 00;00: Patient was seen and evaluated by care team, patient is now under section 12, bed search is underway, continue with physician observation. 08/05/25 Provider: Natanael Nelson, DO Patient in physician observation for psychiatric evaluation.? No acute events reported overnight. No current complaints. VS stable Medications Administered Generic Name Dose Route Start Last Admin Trade Name Freq PRN Reason Stop Dose Admin Amlodipine Besylate 5 mg 08/06/25 09:00 08/06/25 08:52 Amlodipine Besylate 5 Mg Tablet PO 5 mg DAILY AIMEE Administration Protocol Atorvastatin Calcium 80 mg 08/06/25 09:00 08/06/25 08:56 Atorvastatin Calcium 80 Mg Tablet PO 80 mg DAILY AIMEE Administration Benztropine Mesylate 1 mg 08/05/25 21:00 08/05/25 20:51 Benztropine Mesylate 1 Mg Tablet PO 1 mg BEDTIME AIMEE Administration Nicotine 14 mg 08/06/25 09:00 08/06/25 08:52 Nicotine 14 Mg Patch.Td24 TRANSDERMA 14 mg DAILY AIMEE Administration Olanzapine 5 mg 08/05/25 10:14 08/05/25 10:53 Olanzapine 5 Mg Tablet PO 5 mg BID PRN Administration agitation Olanzapine 7.5 mg 08/05/25 21:00 08/05/25 20:51 Olanzapine 7.5 Mg Tablet PO 7.5 mg BEDTIME AIMEE Administration Senna 17.2 mg 08/06/25 09:00 08/06/25 08:52 Sennosides 8.6 Mg Tablet PO 17.2 mg DAILY AIMEE Administration Sertraline HCl 50 mg 08/05/25 10:15 08/06/25 08:52 Sertraline Hcl 50 Mg Tablet PO 50 mg DAILY AIMEE Administration Trazodone HCl 50 mg 08/05/25 21:00 08/05/25 20:51 Trazodone Hcl 50 Mg Tablet PO 50 mg BEDTIME AIMEE Administration Medical Decision Making Differential Diagnosis Differential Diagnoses: The differential diagnosis associated with the presentation includes ( Medical clearance, SI, HI, hallucination, electrolyte derangement, severe anemia, UTI.) Admission/Observation Consideration of admission/observation: Escalation of care including admission/observation considered Lab Data MDM Lab Attestation statement: I reviewed the patient's lab results. 08/04/25 19:14 08/04/25 19:14 Labs: Lab Results 08/04/25 08/04/25 Range/Units 17:49 19:14 WBC 6.2 (4.8-10.8) X10*3/uL RBC 4.36 L (4.60-5.80) X10*6/uL Hgb 13.1 L (14.0-18.0) g/dl Hct 38.2 L (42.0-52.0) % MCV 87.6 (80.0-98.0) fL MCH 30.0 (27.0-33.0) pg MCHC 34.3 (31.0-36.0) g/dl RDW 12.1 (11.0-16.0) % Plt Count 227 (160-400) X10*3/uL MPV 9.0 L (9.4-12.4) fL Immature Gran % (Auto) 0.3 (0.0-0.4) % Neut % (Auto) 57.2 (45-73) % Lymph % (Auto) 35.7 (20-40) % [place] % (Auto) 5.3 (2-11) % Eos % (Auto) 1.3 (0-4) % Baso % (Auto) 0.2 (0-2) % Lymph # (Auto) 2.2 (1.2-4.9) X10*3/uL [place] # (Auto) 0.3 (0.1-1.2) X10*3/uL Eos # (Auto) 0.1 (0.0-0.4) X10*3/uL Baso # (Auto) 0.0 (0.0-0.2) X10*3/uL Abs Immat Gran (auto) 0.02 (0.00-0.03) X10*3/uL Absolute Neuts (auto) 3.6 (2.0-8.3) x10*3/uL Absolute Nucleated RBC 0.000 (0.0-0.012) X10*3/uL Nucleated RBC % (auto) 0.0 (0.0-0.2) /100WBC Sodium 139 (135-145) mmol/L Potassium 3.6 D (3.3-5.1) mmol/L Chloride 104 (96-108) mmol/L Carbon Dioxide 21 L (22-29) mmol/L Anion Gap 18 (12-20) BUN 19 H (9-16) mg/dL Creatinine 0.94 (0.5-1.4) mg/dL Estim Creat Clear Calc 57.1 Estimated GFR > 60 Random Glucose 135 H (60-115) mg/dL Calcium 8.5 (8.4-10.2) mg/dL Total Bilirubin 0.2 (0.0-1.0) mg/dL AST 58 H (5-37) U/L ALT 82 H (0-40) U/L Alkaline Phosphatase 89 (39-117) U/L Total Protein 7.1 (6.5-8.0) g/dL Albumin 4.2 (3.5-5.0) g/dL Urine Color Yellow Urine Appearance Clear Urine pH 5.5 (5.0-9.0) Ur Specific [place] <= 1.005 (1.005-1.025) Urine Protein Negative (Neg-Trace) mg/dL Urine Glucose (UA) Negative (Negative) mg/dL Urine Ketones Negative (Negative) mg/dL Urine Blood Negative (Negative) Urine Nitrite Negative (Negative) Ur Leukocyte Esterase Negative (Negative) Urine RBC 0-2 (0-2) /HPF Urine WBC 0-5 (0-5) /HPF Ur Squamous Epith Cells 0-2 (0-2) /HPF Urine Bacteria None Seen (None Seen) Hyaline Casts 0-2 (0-2) /LPF Urine Opiates Screen Not Detected (Not Detect) Ur Buprenorphine Scrn Not Detected (Not Detect) ng/mL Ur Oxycodone Screen Not Detected (Not Detect) ng/mL Urine Methadone Screen Not Detected (Not Detect) ng/mL Urine Fentanyl Screen Not Detected (Not Detect) Ur Barbiturates Screen Not Detected (Not Detect) Ur Phencyclidine Scrn Not Detected (Not Detect) Ur Amphetamines Screen Not Detected (Not Detect) U Benzodiazepines Scrn Not Detected (Not Detect) Urine Cocaine Screen POSITIVE H (Not Detect) U Marijuana (THC) Screen Not Detected (Not Detect) Ethyl Alcohol 158 mg/dL Discharge Plan Discharge Clinical Impression: Depression, Alcohol use Patient Disposition: Admitted As Inpatient Interventions: Maljamar-Suicide Risk Severity Scale Last Done: 08/05/25 21:08 Admission Worksheet (ED) Last Done: 08/06/25 12:27 Discharge Date/Time: 08/06/25 13:10
[2025-08-04 17:28] VITALS: BP 138/77; PULSE 75; RESP 18; TEMP 36.3; O2SAT 96
[2025-08-04 18:08] LABS: Appearance Urine Clear; Glucose Urine UA Negative (Negative); PH 5.5 (5.0-9.0); Specific Gravity - Urine <= 1.005 (1.005-1.025)
[2025-08-04 18:09] LABS: Cannabinoid Screen Urine Not Detected (Not Detect)
[2025-08-04 19:19] LABS: MANUAL DIFF FLAG NO
[2025-08-04 19:35] LABS: Alanine Aminotransferase 82 U/L (0-40); Albumin Level 4.2 g/dL (3.5-5.0); Alkaline Phosphatase 89 U/L (39-117); Anion Gap 18 (12-20); Aspartate Amino Transferase 58 U/L (5-37); Blood Urea Nitrogen 19 mg/dL (9-16); Calcium 8.5 mg/dL (8.4-10.2); Carbon Dioxide 21 mmol/L (22-29); Chloride 104 mmol/L (96-108); Creatinine Clr Calc Pharmacy 57.1; Estimated Glomerular Filt Rate > 60; Potassium 3.6 mmol/L (3.3-5.1); Sodium 139 mmol/L (135-145); Total Protein 7.1 g/dL (6.5-8.0)
[2025-08-04 19:49] LABS: Hematocrit 38.2 % (42.0-52.0); Hemoglobin 13.1 g/dl (14.0-18.0); Imm Gran Abs Auto 0.02 X10*3/uL (0.00-0.03); Imm Gran Pct Auto 0.3 % (0.0-0.4); Lymphocytes Absolute Auto 2.2 X10*3/uL (1.2-4.9); Mean Corpuscular HGB Conc 34.3 g/dl (31.0-36.0); Mean Corpuscular Hemoglobin 30.0 pg (27.0-33.0); Mean Corpuscular Volume 87.6 fL (80.0-98.0); NRBC Abs Auto 0.000 X10*3/uL (0.0-0.012); NRBC Pct Auto 0.0 /100WBC (0.0-0.2); Platelet Count 227 X10*3/uL (160-400); Red Blood Count 4.36 X10*6/uL (4.60-5.80); White Blood Count 6.2 X10*3/uL (4.8-10.8)
[2025-08-04 21:10] VITALS: BP 151/72; PULSE 81; TEMP 36.4; O2SAT 98
--- NOTE | 2025-08-04 21:33 | PC.NURSE ---
Assumed care at 1845. Patient resting comfortably in bed, no apparent distress noted. Cooperative with VS and blood work.
--- NOTE | 2025-08-05 | ECG_ITS ---
Test Reason : R/O PROLONGED QT Blood Pressure : */* mmHG Vent. Rate : 77 BPM Atrial Rate : 77 BPM P-R Int : 132 ms QRS Dur : 94 ms QT Int : 374 ms P-R-T Axes : 84 -32 59 degrees QTcB Int : 423 ms Normal sinus rhythm Left axis deviation Abnormal ECG When compared with ECG of 20-Jul-2025 12:45, No significant change was found Referred By: Reagan Vela Electronically Signed By: MARISOL LOVE MD
[2025-08-05 06:42] VITALS: BP 139/82; PULSE 70; TEMP 36.1; O2SAT 99
--- NOTE | 2025-08-05 07:58 | PC.NURSE ---
Assumed care of patient at 0645, patient appears to be in no apparent distress this am, calm and cooperative, resting on couch in BH 8. Continue plan of care for IPLOC
--- NOTE | 2025-08-05 11:13 | PC.NURSE ---
Late entry: Patient reporting hearing voices, requesting something to help. pt provided with KENDELL Dickinson from med rec
[2025-08-05 13:50] VITALS: BP 133/76; PULSE 78; RESP 14; TEMP 36.6; O2SAT 98
[2025-08-05] MEDS: OLANZapine 7.5 MG TABLET PO (20:51)
[2025-08-06 00:19] VITALS: BP 130/68; PULSE 75; RESP 18; TEMP 36.8; O2SAT 96
--- NOTE | 2025-08-06 07:15 | PC.NURSE ---
Assumed care, report received. Pt is currently sleeping, safety is maintained.
[2025-08-06] MEDS: Nicotine 14 MG PATCH.TD24 TRANSDERMA (08:52)
[2025-08-06 09:02] VITALS: BP 154/75; PULSE 99; RESP 16; TEMP 36.4; O2SAT 98
[2025-08-06 13:37] VITALS: BP 135/81; PULSE 91; RESP 17; TEMP 36.7; O2SAT 99
[2025-08-06 13:38] VITALS: BMI 23.9
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
--- NOTE | 2025-08-06 18:30 | PC.ADMIT ---
Kyaw was admitted to on 08/06/25 at 13:25 for the treatment of SI. He signed a CV upon arrival. Skin/contraband check completed by staff. Per care team assessment, he self presented to the ED with SI to jump in front of a train. He was calm, pleasant, and cooperative with admission process. He states he is currently hearing voices that tell him he is a piece of shit . He denies VH and HI. 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 He states he sometimes hears voices telling him to hurt himself. He reports good appetite and poor sleep. He reports marijuana and cocaine use. He states he drinks sometimes when someone on the street offers him beer, but does not like the feeling he gets the next day. Utox was positive for cocaine, BAL was 158. He reports having panic attacks. He was hyperverbal during the admission interview and seemed to have difficulty staying on topic. He was placed on 15 minute checks for safety.
[2025-08-06 19:15] VITALS: BP 132/74; PULSE 81; RESP 15; TEMP 37.3; O2SAT 96
[2025-08-06] MEDS: OLANZapine 7.5 MG TABLET PO (20:30)
[2025-08-06] MEDS: Lidocaine 4 % Patch ADH..PATCH 1 PATCH TRANSDERMA (21:19)
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
[2025-08-07 09:06] VITALS: BP 135/78; PULSE 76; RESP 16; TEMP 36.5; O2SAT 98
[2025-08-07] MEDS: Lidocaine 4 % Patch ADH..PATCH 1 PATCH TRANSDERMA (09:14)
[2025-08-07] MEDS: Nicotine 14 MG PATCH.TD24 TRANSDERMA (09:15)
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
[2025-08-07] MEDS: Magnesium Hydrox/Alum Hydrox 30 ML ORAL.SUSP PO (17:38)
[2025-08-07 20:00] VITALS: BP 146/78; PULSE 75; RESP 17; TEMP 36.3; O2SAT 99
[2025-08-07] MEDS: OLANZapine 7.5 MG TABLET PO (20:59)
[2025-08-08 09:14] VITALS: BP 132/73; PULSE 91; RESP 16; TEMP 36.2; O2SAT 98
[2025-08-08] MEDS: Lidocaine 4 % Patch ADH..PATCH 1 PATCH TRANSDERMA (09:22)
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
[2025-08-08 20:00] VITALS: BP 133/75; PULSE 82; RESP 16; TEMP 36.6; O2SAT 98
[2025-08-08] MEDS: OLANZapine 7.5 MG TABLET PO (21:31)
[2025-08-09 09:05] VITALS: BP 119/71; PULSE 76; O2SAT 97
[2025-08-09] MEDS: Lidocaine 4 % Patch ADH..PATCH 1 PATCH TRANSDERMA (09:06)
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
[2025-08-09 19:25] VITALS: BP 115/62; PULSE 83; RESP 16; TEMP 36.4; O2SAT 97
[2025-08-09] MEDS: Magnesium Hydrox/Alum Hydrox 30 ML ORAL.SUSP PO (20:13)
[2025-08-10 08:00] VITALS: BP 122/78; PULSE 90; RESP 16; TEMP 36.7; O2SAT 97
[2025-08-10] MEDS: Lidocaine 4 % Patch ADH..PATCH 1 PATCH TRANSDERMA (08:32)
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
[2025-08-10 19:25] VITALS: BP 126/58; PULSE 77; RESP 16; TEMP 36.3; O2SAT 98
[2025-08-11 08:00] VITALS: BP 118/75; PULSE 79; RESP 16; TEMP 36.4; O2SAT 98
[2025-08-11] MEDS: Lidocaine 4 % Patch ADH..PATCH 1 PATCH TRANSDERMA (08:52)
[2025-08-11] MEDS: Milk of Magnesia 30 ML ORAL.SUSP PO (10:08)
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
[2025-08-11 21:05] VITALS: BP 121/77; PULSE 79; RESP 16; TEMP 36.6; O2SAT 98
[2025-08-12 08:00] VITALS: BP 117/61; PULSE 70; RESP 18; TEMP 37; O2SAT 97
[2025-08-12] MEDS: Lidocaine 4 % Patch ADH..PATCH 1 PATCH TRANSDERMA (08:34)
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
[2025-08-12] MEDS: Magnesium Hydrox/Alum Hydrox 30 ML ORAL.SUSP PO (16:30)
[2025-08-12 20:00] VITALS: BP 153/80; PULSE 84; RESP 16; TEMP 36.8; O2SAT 98
[2025-08-13 07:00] VITALS: BMI 25.2
[2025-08-13 08:00] VITALS: BP 134/73; PULSE 76; RESP 14; TEMP 36.5; O2SAT 98
[2025-08-13 08:40] VITALS: BP 134/3
[2025-08-13] MEDS: Lidocaine 4 % Patch ADH..PATCH 1 PATCH TRANSDERMA (08:40)
== END 2025-08-13 13:27 | DRG 897 ==
LOC: HO.ED 08-05 08:04 → HO.PADLT16 08-06 11:55
PROVIDERS: Admitting Provider Psychiatry & Neurology Psychiatry; Emergency Provider Emergency Medicine; PCP Internal Medicine; Visit Provider Psychiatry & Neurology Psychiatry
DX: F19.94 Other psychoactive substance use, unspecified with psychoactive substance-induced mood disorder (principal); Z59.02 Unsheltered homelessness; R45.851 Suicidal ideations; F17.210 Nicotine dependence, cigarettes, uncomplicated; Y90.6 Blood alcohol level of 120-199 mg/100 ml; Z71.6 Tobacco abuse counseling; F43.10 Post-traumatic stress disorder, unspecified; F14.10 Cocaine abuse, uncomplicated; I10 Essential (primary) hypertension; F10.90 Alcohol use, unspecified, uncomplicated; E78.5 Hyperlipidemia, unspecified; G89.29 Other chronic pain; M25.512 Pain in left shoulder; Z79.899 Other long term (current) drug therapy
CPT/HCPCS: 36415; 80053; 80307; 81001; 85025; 93005; 99285; S9485

== ENCOUNTER → 2025-08-05 11:13 | Outpatient (BNV) | payer MEDICARE, SELFPAY | PROVIDERS: Emergency Provider Emergency Medicine; PCP Internal Medicine; Visit Provider Internal Medicine Cardiovascular Disease | DX: R94.31 Abnormal electrocardiogram [ECG] [EKG] (principal); Z03.89 Encounter for observation for other suspected diseases and conditions ruled out | CPT/HCPCS: 93010 ==

== ENCOUNTER → 2025-08-06 11:46 | Outpatient (BNV) | payer MEDICARE, SELFPAY | PROVIDERS: Admitting Provider Psychiatry & Neurology Psychiatry; Emergency Provider Emergency Medicine; PCP Internal Medicine; Visit Provider Psychiatry & Neurology Psychiatry | DX: F33.2 Major depressive disorder, recurrent severe without psychotic features (principal); F14.10 Cocaine abuse, uncomplicated; F10.90 Alcohol use, unspecified, uncomplicated; F43.10 Post-traumatic stress disorder, unspecified | CPT/HCPCS: 90792 ==

== ENCOUNTER → 2025-08-06 11:46 | Outpatient (BNV) | payer MEDICARE, SELFPAY | PROVIDERS: Admitting Provider Psychiatry & Neurology Psychiatry; Emergency Provider Emergency Medicine; PCP Internal Medicine; Visit Provider Nurse Practitioner Family | DX: I10 Essential (primary) hypertension (principal) | CPT/HCPCS: 99221 ==